=== PATIENT | male | born 1975 | race Caucasian/White ===

== ENCOUNTER 2016-07-04 16:20 | Emergency (ER) | payer MEDICAID ==
[2016-07-04 16:24] VITALS: BMI 34.3
--- NOTE | 2016-07-04 16:35 | DR.GENAD ---
HPI - PCP Primary Care Physician: NFD - Complaint/Symptoms Chief Complaint Doctors Comments: Patient admits to dyspnea for two to three weeks. He denies a history of cardiopulmonary disease. He chews Chief Complaint:: PT C/O PAIN RT RIB AND BACK PAIN WITH SOB. PT STATES HE HAS BEEN HAVING A HARD TIME BREATHING. - Source History Provided: Patient - Mode of Arrival Mode of Arrival: Ambulatory - Timing Onset of Chief Complaint: 07/02/16 PMH - PMH Past Medical History: No Past Surgical History: No - Family History History of Family Medical Conditions: No - Social History Does patient currently use any type of tobacco product: Yes Have you used tobacco products in the last 12 months: Yes Type of Tobacco Use: DIP Does any household member use tobacco: Yes Alcohol Use: Heavy Do you use any recreational Drugs:: No Lives With: Family Lives Where: Home - infectious screening In the last 2 months have you had wt loss of >10#?: NO Have you had fever, night sweats or hemotysis?: No Have you traveled outside the country in the last 6 months?: No Isolation: Standard ROS - Review of Systems Constitutional: No Symptoms Reported Eyes: No Symptoms Reported ENTM: No Symptoms Reported Respiratoy: No Symptoms Reported Cardiovascular: No Symptoms Reported Gastrointestinal/Abdominal: No Symptoms Reported Genitourinary: No Symptoms Reported Neurological: No Symptoms Reported Musculoskeletal: No Symptoms Reported Integumentary: No Symptoms Reported Hematologic/Lymphatic: No Symptoms Reported Endocrine: No Symptoms Reported Psychiatric: No Symptoms Reported All Other Systems: Reviewed and Negative PE - Vital Signs Vitals: Temperature 101.9 F Pulse Rate 114 Respiratory Rate 26 Blood Pressure 149/77 O2 Sat by Pulse Oximetry 94 - General Limitations: No Limitations General Appearance: Alert, In Distress - Head Head Exam: Normal Inspection, Atraumatic - Eyes Eye exam: Normal Appearance, PERRL, EOMI - ENT ENT Exam: Normal Exam, Normal Oropharynx External Ear Exam: Normal External Inspection TM/Canal Exam: Bilateral Normal Nose Exam: Normal Nose Exam Mouth Exam: Normal Inspection Throat Exam: Normal Inspection - Neck Neck Exam: Normal Inspection, Full ROM - Chest Chest Inspection: Normal Inspection - Respiratory Respiratory Exam: Normal Lung Sounds Bilat Respiratory Exam: Bilateral Decreased Breath Sounds (expiratory wheeze) - Cardiovascular Cardiovascular Exam: Regular Rate - Abdominal Exam Abdominal Exam: Normal Inspection Abdominal Tenderness: negative: RUQ, RLQ, LUQ, LLQ, Epigastrium, Suprapubic, Diffuse, Mild, Moderate, Severe, Other - Extremities Extremities Exam: Normal Inspection, Full ROM - Back Back Exam: Normal Inspection - Neurologic Neurological Exam: Alert, Oriented X3, CN II-XII Intact - Psychiatric Psychiatric Exam: Normal Affect - Skin Skin Exam: Warm, Dry, Intact Course - Treatment Treatment: Duo Nebs x3,ceftgriaxone - Reevaluation 1st: Improved ROR - Labs Reviewed Laboratory Results Reviewed?: Yes (cardiacs negative) Result Diagrams: 07/04/16 16:40 07/04/16 16:40 Laboratory: WBC 19.5 X10^3/uL (3.6-10.0) H 07/04/16 16:40 RBC 4.34 X10^6/uL (4.7-6.0) L 07/04/16 16:40 Hgb 13.9 g/dL (13.5-18.0) 07/04/16 16:40 Hct 40.3 % (42.0-54.0) L 07/04/16 16:40 MCV 92.9 fL (80.0-100.0) 07/04/16 16:40 MCH 32.0 pg (27.0-34.0) 07/04/16 16:40 MCHC 34.4 g/dL (33.0-35.0) 07/04/16 16:40 RDW 13.1 % (11.6-16.5) 07/04/16 16:40 Plt Count 245 X10^3/uL (150.0-450.0) 07/04/16 16:40 MPV 7.8 fL (7.4-11.0) 07/04/16 16:40 Neut % 82.3 % (42.0-75.0) H 07/04/16 16:40 Lymph % 10.5 % (21.0-51.0) L 07/04/16 16:40 [place] % 6.7 % (0.0-13.0) 07/04/16 16:40 Eos % 0.1 % (0.9-2.9) L 07/04/16 16:40 Baso % 0.4 % (0.2-1.0) 07/04/16 16:40 Neut # 16.0 x10^3/uL (2.2-4.8) H 07/04/16 16:40 Lymph # 2.0 X10^3/uL (1.3-2.9) 07/04/16 16:40 [place] # 1.3 x10^3/uL (0.3-0.8) H 07/04/16 16:40 Eos # 0.0 x10^3/uL (0.0-0.2) 07/04/16 16:40 Baso # 0.1 X10^3/uL (0.0-0.1) 07/04/16 16:40 Absolute Nucleated RBC 0.0 /100WBC 07/04/16 16:40 INR Target Range - 07/04/16 16:40 INR 1.14 (0.8-1.3) 07/04/16 16:40 PTT 31.5 SECONDS (22.9-36.5) 07/04/16 16:40 PTT Comment - 07/04/16 16:40 D-Dimer 145 ng/mL (0-400) 07/04/16 16:40 Sodium 136 mmol/L (136-145) 07/04/16 16:40 Corrected Sodium 136 mmol/L (136-145) 07/04/16 16:40 Potassium 3.5 mmol/L (3.5-5.1) 07/04/16 16:40 Chloride 98 mmol/L (98-107) 07/04/16 16:40 Carbon Dioxide 23.8 mmol/L (21-32) 07/04/16 16:40 BUN 12 mg/dL (7-18) 07/04/16 16:40 Creatinine 1.01 mg/dL (0.70-1.30) 07/04/16 16:40 Est GFR (MDRD) Af Amer > 60 (>60) 07/04/16 16:40 Est GFR (MDRD) Non-Af > 60 (>60) 07/04/16 16:40 Glucose 113 mg/dL (65-99) H 07/04/16 16:40 Calcium 8.8 mg/dL (8.5-10.1) 07/04/16 16:40 Corrected Calcium TNP 07/04/16 16:40 Phosphorus 3.2 mg/dL (2.6-4.7) 07/04/16 16:40 Magnesium 1.6 mg/dL (1.7-2.9) L 07/04/16 16:40 Total Bilirubin 0.90 mg/dL (0.2-1.0) 07/04/16 16:40 AST 18 Units/L (15-37) 07/04/16 16:40 ALT 33 Units/L (12-78) 07/04/16 16:40 Alkaline Phosphatase 64 Units/L (46-116) 07/04/16 16:40 Creatine Kinase 234 Units/L (39-308) 07/04/16 16:40 CK-MB (CK-2) < 1.0 ng/mL (0-4.0) 07/04/16 16:40 CK/CKMB % Calc 0.4 % (<4) 07/04/16 16:40 Troponin I < 0.02 ng/mL (0-1.5) 07/04/16 16:40 Total Protein 8.4 g/dL (6.4-8.2) H 07/04/16 16:40 Albumin 3.9 g/dL (3.4-5.0) 07/04/16 16:40 Globulin 4.5 g/dL (2.5-4.5) 07/04/16 16:40 Albumin/Globulin Ratio 0.9 Ratio (1.1-2.1) L 07/04/16 16:40 Influenza A (H1N1) PCR Not detected (NOT DETECT) 07/04/16 17:37 Influenza Type A (PCR) Negative (NEGATIVE) 07/04/16 17:37 Influenza Type B (PCR) Negative (NEGATIVE) 07/04/16 17:37 - XRAY XRAY Interpreted by: Radiologist (Chest: The cardiac silhouette is unremarkable. There is prominence of the central bronchial pulmonary markings in both lungs. There are possible infiltrates in the infrahilar regions bilaterally and suprahilar region on the right. There is no evidence of consolidation, significant effusion or pneumothorax. The bony thorax is unremarkable Impressions: Bronchitis vs reactive airway disease with superimposed and perihilar infiltrates.) - Diagnosis Discharge Problem: Reactive airway disease Qualifiers: Asthma severity: unspecified severity Asthma complication type: uncomplicated Qualified Code(s): J45.909 - Unspecified asthma, uncomplicated Pneumonia Qualifiers: Pneumonia type: due to unspecified organism Lung location: unspecified part of lung - Discharge Plan Condition: Stable - Follow ups/Referrals Follow ups/Referrals: NFD,None [Primary Care Provider] - 3 days - Instructions
[2016-07-04 16:53] LABS: BASOPHILS # (AUTO) 0.1 X10^3/uL (0.0-0.1); BASOPHILS % (AUTO) 0.4 % (0.2-1.0); EOSINOPHILS % (AUTO) 0.1 % (0.9-2.9); HEMATOCRIT 40.3 % (42.0-54.0); HEMOGLOBIN 13.9 g/dL (13.5-18.0); LYMPHOCYTES % (AUTO) 10.5 % (21.0-51.0); MEAN CORPUSCULAR HGB CONC 34.4 g/dL (33.0-35.0); MEAN CORPUSCULAR VOLUME 92.9 fL (80.0-100.0); MEAN PLATELET VOLUME 7.8 fL (7.4-11.0); MONOCYTES # (AUTO) 1.3 x10^3/uL (0.3-0.8); MONOCYTES % (AUTO) 6.7 % (0.0-13.0); NEUTROPHILS % (AUTO) 82.3 % (42.0-75.0); PLATELET COUNT 245 X10^3/uL (150.0-450.0); RED BLOOD COUNT 4.34 X10^6/uL (4.7-6.0); RED CELL DISTRIBUTION WIDTH 13.1 % (11.6-16.5); WHITE BLOOD COUNT 19.5 X10^3/uL (3.6-10.0)
--- NOTE | 2016-07-04 16:57 | RAD ---
Examination: Chest x-ray. Clinical History: Dyspnea. Technique: A single portable AP view of the chest was obtained. Comparison: None available. Findings: The lungs are hypoventilated, precluding evaluation of the heart size. The thoracic aorta is mildly tortuous. No pneumothorax or pleural effusion is noted. No pulmonary opacity is noted. No acute osseous abnormality is noted. Monitor leads are seen overlying the chest. Impression: 1. Hypoventilated lungs. Reported By:
[2016-07-04] MEDS ORDERED: ASPIRIN PO SCH (17:00)
[2016-07-04 17:16] LABS: BLOOD UREA NITROGEN 12 mg/dL (7-18); CALCIUM 8.8 mg/dL (8.5-10.1); CARBON DIOXIDE 23.8 mmol/L (21-32); CHLORIDE 98 mmol/L (98-107); COR NA(FOR HYPERGLY) 136 mmol/L (136-145); CREATININE 1.01 mg/dL (0.70-1.30); GLUCOSE 113 mg/dL (65-99); SODIUM 136 mmol/L (136-145); TROPONIN I < 0.02 ng/mL (0-1.5); eGFR BLACK RACES > 60 (>60); eGFR NON BLACK RACES > 60 (>60)
[2016-07-04 17:20] LABS: D DIMER 145 ng/mL (0-400)
[2016-07-04 17:31] LABS: ALANINE AMINOTRANSFERASE 33 Units/L (12-78); ALBUMIN 3.9 g/dL (3.4-5.0); ALKALINE PHOSPHATASE 64 Units/L (46-116); ASPARTATE AMINO TRANSFERASE 18 Units/L (15-37); CKMB % 0.4 % (<4); CREATINE KINASE 234 Units/L (39-308); CREATINE KINASE MB < 1.0 ng/mL (0-4.0); MAGNESIUM 1.6 mg/dL (1.7-2.9); PHOSPHORUS 3.2 mg/dL (2.6-4.7); TOTAL PROTEIN 8.4 g/dL (6.4-8.2)
[2016-07-04] MEDS ORDERED: ASPIRIN ONE (17:36)
[2016-07-04] MEDS ORDERED: DUONEB 0.5 MG/3 MG ONE ×2 (17:40→19:12)
[2016-07-04] MEDS ORDERED: DUONEB 0.5 MG/3 MG NEB ONE ×2 (17:49→19:01)
--- NOTE | 2016-07-04 18:02 | RAD ---
HISTORY: Dyspnea. Study: Chest two views Comparison: July 04, 2016. Findings: The trachea is midline. The cardiac silhouette is unremarkable. There is prominence of the central bronchial pulmonary markings in both lungs. There are possible infiltrates in the infrahilar regions bilaterally and suprahilar region on the right. There is no evidence of consolidation, significant effusion or pneumothorax. The bony thorax is unremarkable. IMPRESSION: 1. Bronchitis versus reactive airway disease, with superimposed and perihilar infiltrates. Reported By:
[2016-07-04] MEDS ORDERED: DECADRON JET NEB NEB ONE ×2 (19:01→19:11)
[2016-07-04] MEDS ORDERED: ROCEPHIN VIAL 1 GM 1 GM in NS 50 ML IV + SPIKE MINIBAG* 50 ML IV ONE (19:38)
[2016-07-04] MEDS ORDERED: ROCEPHIN VIAL 1 GM ONE (19:42)
[2016-07-04] MEDS ORDERED: NS 50 ML IV + SPIKE MINIBAG* 50 ML IV ONE (19:42)
[2016-07-04 22:55] VITALS: BP 138/65
== END 2016-07-04 20:10 | disposition home or self-care (01) ==
LOC: ER 16:29
DX: J18.9 Pneumonia, unspecified organism (principal); J45.909 Unspecified asthma, uncomplicated; R06.02 Shortness of breath
CPT/HCPCS: 36415; 71010; 71020; 80053; 82550; 82553; 83735; 84100; 84484; 85025; 85378; 85610; 85730; 87502; 87503; 93005; 93010; 94644; 96365; 96374; 99283; A4222; J0696; J7620

== ENCOUNTER 2020-12-13 13:20 | Inpatient (IN) ==
[2020-12-13 13:47] VITALS: BMI 48.6
[2020-12-13] MEDS ORDERED: REMDESIVIR 200 MG in NS 100 ML IV 140 ML IV ONE (14:22)
[2020-12-13] MEDS ORDERED: DECADRON INJ IVP ONE (14:22)
[2020-12-13] MEDS ORDERED: DECADRON INJ ONE (14:25)
--- NOTE | 2020-12-13 14:25 | DR.SOBA ---
HPI Time Seen Time Seen by Provider: 12/13/20 14:18 Primary Care Physician Primary Care Physician: NONE Complaints Chief Complaint:: COVID (+) 8 DAYS AGO, ONSET OF SOB THIS AM. PT.'S SISTER WAS ALSO (+) AND THE PATIENT BORROWED HIS SISTER'S OXYGEN TO GET TO THE HOSPITAL Self Treatment fo Chief Complaint: OTC ZINC & VITAMIN C Reviewed Nurses Notes Reviewed: Yes Source History Provided: Patient Mode of Arrival Mode of Arrival: Wheelchair Timing Onset of Chief Complaint: 12/13/20 PMH PMH Past Medical History: No Past Surgical History: No Family History History of Family Medical Conditions: Yes Family Medical History: Diabetes Mellitus and Hypertension Social History Does patient currently use any type of tobacco product: No Have you used tobacco products in the last 12 months: No Type of Tobacco Use: None Does any household member use tobacco: No Do you use any recreational Drugs:: No Lives With: Mom Lives Where: Home Infectious screening In the last 2 months have you had wt loss of >10#?: NO Have you had fever, night sweats or hemotysis?: No Have you traveled outside the country in the last 6 months?: No Isolation: Airborn/Negative Pressure ROS Review of Systems Constitutional: Malaise and Fatigue Eyes: No Symptoms Reported ENTM: No Symptoms Reported Respiratoy: See HPI, Non-Productive Cough and Short of Breath Cardiovascular: No Symptoms Reported Gastrointestinal/Abdominal: No Symptoms Reported Genitourinary: No Symptoms Reported Neurological: No Symptoms Reported Musculoskeletal: No Symptoms Reported Integumentary: No Symptoms Reported Hematologic/Lymphatic: No Symptoms Reported Endocrine: No Symptoms Reported Psychiatric: No Symptoms Reported All Other Systems: Reviewed and Negative PE Vital Signs Vitals: Temperature 97.6 F Pulse Rate 79 Respiratory Rate 27 Blood Pressure [Left Arm] 138/65 Blood Pressure 124/69 O2 Sat by Pulse Oximetry 92 General Limitations: No Limitations General Appearance: Alert and In No Apparent Distress Head Head Exam: Normal Inspection Eyes Eye exam: Normal Appearance ENT ENT Exam: Normal Exam Neck Neck Exam: Normal Inspection Chest Chest Inspection: Normal Inspection Respiratory Respiratory Exam: Normal Lung Sounds Bilat Respiratory Exam: Bilateral: Clear to Auscultation Cardiovascular Cardiovascular Exam: Regular Rate and Normal Rhythm Abdominal Exam Abdominal Exam: Normal Inspection, Normal Bowel Sounds and Soft Extremities Extremities Exam: Normal Inspection Back Back Exam: Normal Inspection Neurologic Neurological Exam: Alert and Oriented X3 Psychiatric Psychiatric Exam: Normal Affect and Normal Mood Skin Skin Exam: Warm, Dry, Intact and Normal Color MDM Differential Diagnosis Differential Diagnosis: Anxiety, Asthma, Bronchitis, Cardiogenic shock, CHF, COPD, Dysrhythmia, Hypertensive Emergency, Hyperventilation, Hyponatremia, Mycardial Infarction, Panic Attack, Pneumonia, Pneumothorax, PSVT, Pulmonary embolism, Respiratory Failure, Respiratory Insufficiency, Sinusitis, URI and Other Differential Diagnosis Comment:: covid COURSE Treatment Treatment: hypoxia, covid + 8 day [employer], no clear signs of resp distress or severe sepsis Reevaluation 1st: Improved (COVID hypoxia, will admit, see orders spoke with Morgan) Education/Counseling Education/Counseling: Patient, Family and Counseling Educated On: Treatment, Diagnosis and Prognosis ROR Labs Reviewed Laboratory Results Reviewed?: Yes Result Diagrams: 12/13/20 14:40 12/13/20 14:40 Laboratory: WBC 6.4 X10^3/uL (3.6-10.0) 12/13/20 14:40 RBC 4.38 X10^6/uL (4.7-6.0) L 12/13/20 14:40 Hgb 14.1 g/dL (13.5-18.0) 12/13/20 14:40 Hct 40.4 % (42.0-54.0) L 12/13/20 14:40 MCV 92.2 fL (80.0-100.0) 12/13/20 14:40 MCH 32.1 pg (27.0-34.0) 12/13/20 14:40 MCHC 34.8 g/dL (33.0-35.0) 12/13/20 14:40 RDW 12.8 % (11.6-16.5) 12/13/20 14:40 Plt Count 186 X10^3/uL (150.0-450.0) 12/13/20 14:40 MPV 7.5 fL (7.4-11.0) 12/13/20 14:40 Neut % (Auto) 72.1 % (42.0-75.0) 12/13/20 14:40 Lymph % (Auto) 21.4 % (21.0-51.0) 12/13/20 14:40 [place] % (Auto) 6.2 % (0.0-13.0) 12/13/20 14:40 Eos % (Auto) 0.1 % (0.9-2.9) L 12/13/20 14:40 Baso % (Auto) 0.2 % (0.2-1.0) 12/13/20 14:40 Neut # (Auto) 4.6 x10^3/uL (2.2-4.8) 12/13/20 14:40 Lymph # (Auto) 1.4 X10^3/uL (1.3-2.9) 12/13/20 14:40 [place] # (Auto) 0.4 x10^3/uL (0.3-0.8) 12/13/20 14:40 Eos # (Auto) 0.0 x10^3/uL (0.0-0.2) 12/13/20 14:40 Baso # (Auto) 0.0 X10^3/uL (0.0-0.1) 12/13/20 14:40 Absolute Nucleated RBC 0.1 /100WBC 12/13/20 14:40 D-Dimer 0.40 ug/ml (0.0-0.57) 12/13/20 14:40 Sample Site Lr 12/13/20 14:50 ABG pH 7.450 (7.35-7.45) 12/13/20 14:50 ABG pCO2 45.0 mmHg (35.0-45.0) 12/13/20 14:50 ABG pO2 53.0 mmHg (80.0-100.0) L 12/13/20 14:50 ABG HCO3 31.3 mmol/L (22-26) H* 12/13/20 14:50 ABG O2 Saturation 89.0 % (90-100) L 12/13/20 14:50 ABG Base Excess 6.4 mmol/L (-2.0-2.0) H 12/13/20 14:50 Harry Test Pos 12/13/20 14:50 A-a Gradient 147.0 mmHg 12/13/20 14:50 FiO2 36.0 12/13/20 14:50 Blood Gas Comments Pt [email or web address] 12/13/20 14:50 Sodium 139 mmol/L (136-145) 12/13/20 14:40 Corrected Sodium 140 mmol/L (136-145) 12/13/20 14:40 Potassium 3.9 mmol/L (3.5-5.1) 12/13/20 14:40 Chloride 99 mmol/L (98-107) 12/13/20 14:40 Carbon Dioxide 32.7 mmol/L (21-32) H 12/13/20 14:40 BUN 8 mg/dL (7-18) 12/13/20 14:40 Creatinine 0.87 mg/dL (0.70-1.30) 12/13/20 14:40 Est GFR (MDRD) Af Amer > 60 (>60) 12/13/20 14:40 Est GFR (MDRD) Non-Af > 60 (>60) 12/13/20 14:40 Glucose 130 mg/dL (65-99) H 12/13/20 14:40 Calcium 8.4 mg/dL (8.5-10.1) L 12/13/20 14:40 Corrected Calcium 9.0 mg/dL (8.5-10.1) 12/13/20 14:40 Ferritin 1408 ng/mL (26-388) H 12/13/20 14:40 Total Bilirubin 0.50 mg/dL (0.2-1.0) 12/13/20 14:40 AST 37 Units/L (15-37) 12/13/20 14:40 ALT 46 Units/L (12-78) 12/13/20 14:40 Alkaline Phosphatase 60 Units/L (46-116) 12/13/20 14:40 Creatine Kinase 172 Units/L (39-308) 12/13/20 14:40 CK-MB (CK-2) < 1.0 ng/mL (0-4.0) 12/13/20 14:40 CK/CKMB % Calc 0.6 % (<4) 12/13/20 14:40 Troponin I < 0.02 ng/mL (0-1.5) 12/13/20 14:40 C-Reactive Protein 75.40 mg/L (0-3.0) H 12/13/20 14:40 B-Natriuretic Peptide 19.1 pg/mL (0-79) 12/13/20 14:40 Total Protein 8.0 g/dL (6.4-8.2) 12/13/20 14:40 Albumin 3.3 g/dL (3.4-5.0) L 12/13/20 14:40 Globulin 4.7 g/dL (2.5-4.5) H 12/13/20 14:40 Albumin/Globulin Ratio 0.7 Ratio (1.1-2.1) L 12/13/20 14:40 SARS-CoV-2 (PCR) Positive (NEGATIVE) A 12/13/20 15:31 Influenza Type A (PCR) Negative (NEGATIVE) 12/13/20 15:31 Influenza Type B (PCR) Negative (NEGATIVE) 12/13/20 15:31 RSV (PCR) Negative (NEGATIVE) 12/13/20 15:31 XRAY XRAY Interpreted by: Radiologist X-ray Results: Moderate airspace and interstitial opacities consistent with COVID 19. Cardiomegaly. Widened mediastinum may be due to technique but underlying mediastinal pathology occluding aortic pathology is not excluded. Consider PA view or CT chest for further evaluation. probable due to body habitus and technique EKG Rate: 87 [place]: Normal Block: None Hypertrophy: None ST: Nonsp Opioid Opioid Risk Tool Total: 0 Total Score Risk Category: Low Risk Copyright: [facility] predicting aberrant behaviors Diagnosis Discharge Problem: COVID-19, Hypoxia Pneumonia Qualifiers: Pneumonia type: due to unspecified organism Laterality: unspecified laterality Lung location: unspecified part of lung Qualified Code(s): J18.9 - Pneumonia, unspecified organism Dyspnea Qualifiers: Dyspnea type: unspecified Qualified Code(s): R06.00 - Dyspnea, unspecified
--- NOTE | 2020-12-13 14:36 | RAD ---
HISTORYCOVID (+) 8 DAYS AGO, ONSET OF SOB THIS AM. PT.'S SISTER WAS ALSO (+) AND THE PATIENT BORROWED HIS SISTER'S OXYGEN TO GET TO THE [facility], [id number], report only.TECHNIQUEAP view of the chestFINDINGSThe cardiac silhouette is stably enlarged. Mediastinal contours appear stable. Widened mediastinum may be due to technique. Moderate bilateral airspace and interstitial opacities. No definite pleural effusion or pneumothorax.IMPRESSIONModerate airspace and interstitial opacities consistent with COVID 19. Cardiomegaly. Widened mediastinum may be due to technique but underlying mediastinal pathology occluding aortic pathology is not excluded. Consider PA view or CT chest for further evaluation.Electronically signed by: Ever Olivas (Dec 13, 2020 14:34:58)
[2020-12-13 14:54] LABS: ABG BASE EXCESS 6.4 mmol/L (-2.0-2.0)
[2020-12-13 14:54] LABS: BASOPHILS % (AUTO) 0.2 % (0.2-1.0); EOSINOPHILS % (AUTO) 0.1 % (0.9-2.9); HEMATOCRIT 40.4 % (42.0-54.0); HEMOGLOBIN 14.1 g/dL (13.5-18.0); LYMPHOCYTES # (AUTO) 1.4 X10^3/uL (1.3-2.9); LYMPHOCYTES % (AUTO) 21.4 % (21.0-51.0); MEAN CORPUSCULAR HEMOGLOBIN 32.1 pg (27.0-34.0); MEAN CORPUSCULAR HGB CONC 34.8 g/dL (33.0-35.0); MEAN CORPUSCULAR VOLUME 92.2 fL (80.0-100.0); MEAN PLATELET VOLUME 7.5 fL (7.4-11.0); MONOCYTES # (AUTO) 0.4 x10^3/uL (0.3-0.8); MONOCYTES % (AUTO) 6.2 % (0.0-13.0); NEUTROPHILS # (AUTO) 4.6 x10^3/uL (2.2-4.8); NEUTROPHILS % (AUTO) 72.1 % (42.0-75.0); PLATELET COUNT 186 X10^3/uL (150.0-450.0); RED BLOOD COUNT 4.38 X10^6/uL (4.7-6.0); RED CELL DISTRIBUTION WIDTH 12.8 % (11.6-16.5); WHITE BLOOD COUNT 6.4 X10^3/uL (3.6-10.0)
[2020-12-13 14:55] LABS: ABG ALLEN TEST POS; ABG HCO3 31.3 mmol/L (22-26)
[2020-12-13] MEDS ORDERED: REMDESIVIR IV ONE (14:56)
[2020-12-13] MEDS ORDERED: NS 250 ML IV 250 ML IV ONE (14:57)
[2020-12-13 15:43] LABS: ALANINE AMINOTRANSFERASE 46 Units/L (12-78); ALBUMIN 3.3 g/dL (3.4-5.0); ALKALINE PHOSPHATASE 60 Units/L (46-116); ASPARTATE AMINO TRANSFERASE 37 Units/L (15-37); BLOOD UREA NITROGEN 8 mg/dL (7-18); CALCIUM 8.4 mg/dL (8.5-10.1); CARBON DIOXIDE 32.7 mmol/L (21-32); CHLORIDE 99 mmol/L (98-107); CKMB % 0.6 % (<4); COR NA(FOR HYPERGLY) 140 mmol/L (136-145); CREATINE KINASE 172 Units/L (39-308); CREATINE KINASE MB < 1.0 ng/mL (0-4.0); CREATININE 0.87 mg/dL (0.70-1.30); SODIUM 139 mmol/L (136-145); TROPONIN I < 0.02 ng/mL (0-1.5); eGFR NON BLACK RACES > 60 (>60)
[2020-12-13] MEDS ORDERED: MAGIC MOUTHWASH MT PRN (16:51)
[2020-12-13] MEDS ORDERED: TUSSIONEX PENNKINETIC SUSP PO PRN (16:51)
[2020-12-13] MEDS ORDERED: ACTEMRA IV ONE (16:51)
[2020-12-13] MEDS ORDERED: PHARMACY CONSULT - IVERMECTIN XX SCH (17:00)
[2020-12-13] MEDS ORDERED: ACCUNEB 1.25 MG NEBULE NEB SCH (17:00)
[2020-12-13] MEDS: MUCOMYST 20% 200 MG/ML NEB SCH ×2 (17:02→20:25)
[2020-12-13] MEDS: XOPENEX 1.25 MG/3 ML NEBULE NEB SCH ×2 (17:02→20:25)
[2020-12-13] MEDS ORDERED: NS 1/2 1000 ML IV 1,000 ML IV ONE (17:54)
[2020-12-13] MEDS: NS 1/2 1000 ML IV 1,000 ML IV SCH ×2 (17:57→17:58)
[2020-12-13] MEDS ORDERED: PULMICORT NEB TX 0.5 MG NEB ONE (19:10)
[2020-12-13] MEDS ORDERED: LIPITOR TAB 80 MG ONE (19:58)
[2020-12-13] MEDS ORDERED: THIAMINE HCL INJ ONE (19:58)
[2020-12-13] MEDS ORDERED: LOVENOX INJ 30 MG SYR SC ONE (19:58)
[2020-12-13] MEDS ORDERED: SOLU-Medrol 125 MG VIAL ONE (19:58)
[2020-12-13] MEDS ORDERED: TESSALON PERLES PO ONE (19:58)
[2020-12-13] MEDS ORDERED: MELATONIN ONE (19:58)
[2020-12-13] MEDS ORDERED: FORTAZ or TAZICEF VIAL INJ ONE (19:59)
[2020-12-13] MEDS ORDERED: NS 100 ML IV + SPIKE MINIBAG* 100 ML IV ONE (19:59)
[2020-12-13] MEDS ORDERED: MILK OF MAGNESIA ONE (19:59)
[2020-12-13] MEDS ORDERED: NS 50 ML IV 50 ML IV ONE (19:59)
[2020-12-13] MEDS: PULMICORT NEB TX 0.5 MG NEB SCH (20:25)
[2020-12-13] MEDS: TESSALON PERLES PO SCH (21:19)
[2020-12-13] MEDS: FORTAZ or TAZICEF VIAL INJ IV SCH (21:19)
[2020-12-13] MEDS: ASCORBIC ACID INJ MULTI-DOSE VIAL 1,500 MG in NS 50 ML IV 50 ML IV SCH (21:19)
[2020-12-13] MEDS: THEO-DUR TAB 300 MG 12-HR PO SCH (21:20)
[2020-12-13] MEDS: MELATONIN PO SCH (21:20)
[2020-12-13] MEDS: THIAMINE HCL INJ IVP SCH (21:20)
[2020-12-13] MEDS: MILK OF MAGNESIA PO SCH ×2 (21:20→22:00)
[2020-12-13] MEDS: LIPITOR TAB 80 MG PO SCH (21:21)
[2020-12-13] MEDS: SOLU-Medrol 125 MG VIAL IVP SCH (21:21)
[2020-12-13] MEDS: SNACK - Diabetic Appropriate PO SCH (21:22)
[2020-12-13] MEDS: LOVENOX INJ 30 MG SYR SC SCH (21:23)
[2020-12-13] MEDS: SINGULAIR TAB 10 MG PO SCH (21:47)
[2020-12-14] MEDS ORDERED: NS 50 ML IV 50 ML IV ONE ×2 (02:27→12:15)
[2020-12-14] MEDS ORDERED: SOLU-Medrol 125 MG VIAL ONE ×2 (02:28→12:12)
[2020-12-14] MEDS: ASCORBIC ACID INJ MULTI-DOSE VIAL 1,500 MG in NS 50 ML IV 50 ML IV SCH ×3 (02:44→21:05)
[2020-12-14] MEDS: SOLU-Medrol 125 MG VIAL IVP SCH ×4 (02:45→21:03)
[2020-12-14] MEDS ORDERED: TESSALON PERLES PO ONE (06:02)
[2020-12-14] MEDS ORDERED: FORTAZ or TAZICEF VIAL INJ ONE (06:02)
[2020-12-14] MEDS: FORTAZ or TAZICEF VIAL INJ IV SCH ×3 (06:09→21:50)
[2020-12-14] MEDS: TESSALON PERLES PO SCH ×3 (06:11→21:08)
[2020-12-14 06:35] LABS: BASOPHILS % (AUTO) 0.1 % (0.2-1.0); HEMATOCRIT 39.6 % (42.0-54.0); HEMOGLOBIN 13.8 g/dL (13.5-18.0); LYMPHOCYTES # (AUTO) 0.7 X10^3/uL (1.3-2.9); LYMPHOCYTES % (AUTO) 16.1 % (21.0-51.0); MEAN CORPUSCULAR HEMOGLOBIN 32.1 pg (27.0-34.0); MEAN CORPUSCULAR HGB CONC 34.8 g/dL (33.0-35.0); MEAN CORPUSCULAR VOLUME 92.1 fL (80.0-100.0); MEAN PLATELET VOLUME 8.1 fL (7.4-11.0); MONOCYTES # (AUTO) 0.1 x10^3/uL (0.3-0.8); MONOCYTES % (AUTO) 2.8 % (0.0-13.0); NEUTROPHILS # (AUTO) 3.7 x10^3/uL (2.2-4.8); PLATELET COUNT 210 X10^3/uL (150.0-450.0); RED CELL DISTRIBUTION WIDTH 12.8 % (11.6-16.5); WHITE BLOOD COUNT 4.6 X10^3/uL (3.6-10.0)
[2020-12-14 07:42] LABS: ALANINE AMINOTRANSFERASE 46 Units/L (12-78); ALKALINE PHOSPHATASE 57 Units/L (46-116); ASPARTATE AMINO TRANSFERASE 36 Units/L (15-37); BLOOD UREA NITROGEN 10 mg/dL (7-18); CALCIUM 8.1 mg/dL (8.5-10.1); CARBON DIOXIDE 28.4 mmol/L (21-32); CHLORIDE 100 mmol/L (98-107); COR CA(FOR HYPOALB) 8.9 mg/dL (8.5-10.1); COR NA(FOR HYPERGLY) 141 mmol/L (136-145); CREATININE 0.86 mg/dL (0.70-1.30); SODIUM 138 mmol/L (136-145); TOTAL PROTEIN 7.7 g/dL (6.4-8.2); eGFR NON BLACK RACES > 60 (>60)
--- NOTE | 2020-12-14 07:58 | CT ---
HISTORYCOVID-19, widened upper mediastinumSTUDYCTA chest with contrast for pulmonary embolusTechnique: Axial post-contrast images with coronal, sagittal, and 3 dimensional maximum intensity projection images obtained and evaluated. Dose reduction procedures were used with mA/kv adjusted for body size.COMPARISONChest x-ray 12/13/2020FINDINGSThere is no evidence for acute pulmonary thromboembolic disease in the main pulmonary artery, right and left main pulmonary artery, lobar branches and proximal most segmental branches. Evaluation peripherally is not possible due to suboptimal bolus timing. 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 No mediastinal mass abnormal mediastinal or abnormal hilar adenopathy is identified. No significant aortic abnormality is identified. No pleural effusions are identified. No chest wall or axillary abnormality is identified. Those portions of the upper abdominal organs visualized were within normal limits to the limitations of early arterial injection timing. Examination of the lung deal demonstrated bilateral predominantly peripheral ground-glass infiltrates demonstrating some subpleural sparing. Findings are consistent with bilateral multifocal pneumonitis/pneumonia which could be bacterial, viral, or atypical viral in origin. COVID can have this appearance. No definite nodules, masses, areas of consolidation, peribronchial thickening, or bronchiectasis identified.IMPRESSIONNo evidence for acute pulmonary thromboembolic disease in the main pulmonary artery, right and left main pulmonary arteries, lobar branches and proximal most segmental branches. Evaluation more peripherally is not possible due to suboptimal bolus timingMediastinal widening is due to benign mediastinal lipomatosisScattered bilateral predominantly peripheral ground-glass infiltrates consistent with but not diagnostic of COVID lung involvement.Electronically signed by: MARISOL LEE (Dec 14, 2020 07:55:57)
--- NOTE | 2020-12-14 08:21 | RAD ---
HISTORYCOVID Relevant Clinical InformationSTUDYCHEST, 1 [id number]/02/2021.FINDINGSThe trachea is midline mild cardiomegaly. Large body habitus. There are unchanged small peripheral ground-glass radiopacitiesThere is also a left perihilar ground-glass radiopacity. No evidence of pneumothorax. No subcutaneous emphysema or pneumomediastinumIMPRESSIONPersistent small ground-glass radiopacity in the periphery of the lungs, mild worsening left perihilar ground-glass radiopacity.Electronically signed by: Sonya Fuller (Dec 14, 2020 08:19:33)
[2020-12-14] MEDS: XOPENEX 1.25 MG/3 ML NEBULE NEB SCH ×4 (09:04→21:35)
[2020-12-14] MEDS: PULMICORT NEB TX 0.5 MG NEB SCH ×2 (09:04→21:35)
[2020-12-14] MEDS: MUCOMYST 20% 200 MG/ML NEB SCH ×4 (09:04→21:35)
--- NOTE | 2020-12-14 11:00 | DR.H&P ---
H&P History & Physical for Day of: H&P Date: 12/14/20 Chief Complaint Chief Complaint: Shortness of breath Weakness, Fatigue Allergies Allergies Allergy/AdvReac Type Severity Reaction Status Date / Time No Known Drug Allergies Allergy Verified 12/13/20 15:31 History of Present Illness History of Present Illness: Pt is a 45 year old male no past medical history presenting with progressively worsening shortness of breath, weakness, fatigue for the past 3-4 days. He reports testing positive for COVID-19 recently. He has been using his mother's oxygen intermittently at home to get by until shortness of breath became "too much". In the ED he was found to be hypoxic. He is currently utilizing 5L nasal cannula supplemental oxygen. Labs/imaging: Wbc 4.6, Hgb 13.8, Plt 210, Na 139, K 3.9, Creatinine 0.87, Glucose 130, CRP 75, D-dimer 0.36, ABG: pH 7.45, pCO2 45, pO2 53, HCO3 31, O2sat 89% on FiO2 36%, COVID-19 positive, CXR: Persistent small ground-glass radiopacity in the periphery of the lungs, mild worsening left perihilar ground-glass radiopacity. Concern for widened mediastinum on report. Will start patient on pneumonia protocol treatments that includes: IVF NS@75ml/h, Remdesivir, Solumedrol 125mg q6h, scheduled Bronchodilators, Antibiotics: Fortaz, Levaquin, Diflucan, Ivermectin, immune supporting supplements, supplemental O2, I/S, Respiratory therapy consult, Pneumonia protocol. Will get CTA of chest to evaluate widened mediastinum. Wean/titrate supplemental oxygen as tolerated. Continue to closely monitor and follow up labs/imaging. Time spent on clinical assessment, reviewing labs and imaging, decision making, and documentation greater than 45 minutes. Past Medical History Past Medical History: Family History Family Medical History: Diabetes Mellitus and Hypertension Social History Does patient currently use any type of tobacco product: No Have you used tobacco products in the last 12 months: No Type of Tobacco Use: None Does any household member use tobacco: No Medications Home Medications: No Known Drug Allergies Allergy (Verified 12/13/20 15:31) Labs Result Diagrams: 12/14/20 05:18 12/14/20 05:18 Labs: Laboratory WBC 4.6 X10^3/uL (3.6-10.0) 12/14/20 05:18 RBC 4.30 X10^6/uL (4.7-6.0) L 12/14/20 05:18 Hgb 13.8 g/dL (13.5-18.0) 12/14/20 05:18 Hct 39.6 % (42.0-54.0) L 12/14/20 05:18 MCV 92.1 fL (80.0-100.0) 12/14/20 05:18 MCH 32.1 pg (27.0-34.0) 12/14/20 05:18 MCHC 34.8 g/dL (33.0-35.0) 12/14/20 05:18 RDW 12.8 % (11.6-16.5) 12/14/20 05:18 Plt Count 210 X10^3/uL (150.0-450.0) 12/14/20 05:18 MPV 8.1 fL (7.4-11.0) 12/14/20 05:18 Neut % (Auto) 81.0 % (42.0-75.0) H 12/14/20 05:18 Lymph % (Auto) 16.1 % (21.0-51.0) L 12/14/20 05:18 [place] % (Auto) 2.8 % (0.0-13.0) 12/14/20 05:18 Eos % (Auto) 0.0 % (0.9-2.9) L 12/14/20 05:18 Baso % (Auto) 0.1 % (0.2-1.0) L 12/14/20 05:18 Neut # (Auto) 3.7 x10^3/uL (2.2-4.8) 12/14/20 05:18 Lymph # (Auto) 0.7 X10^3/uL (1.3-2.9) L 12/14/20 05:18 [place] # (Auto) 0.1 x10^3/uL (0.3-0.8) L 12/14/20 05:18 Eos # (Auto) 0.0 x10^3/uL (0.0-0.2) 12/14/20 05:18 Baso # (Auto) 0.0 X10^3/uL (0.0-0.1) 12/14/20 05:18 Absolute Nucleated RBC 0.1 /100WBC 12/14/20 05:18 D-Dimer 0.36 ug/ml (0.0-0.57) 12/13/20 17:07 Sample Site Lr 12/13/20 14:50 ABG pH 7.450 (7.35-7.45) 12/13/20 14:50 ABG pCO2 45.0 mmHg (35.0-45.0) 12/13/20 14:50 ABG pO2 53.0 mmHg (80.0-100.0) L 12/13/20 14:50 ABG HCO3 31.3 mmol/L (22-26) H* 12/13/20 14:50 ABG O2 Saturation 89.0 % (90-100) L 12/13/20 14:50 ABG Base Excess 6.4 mmol/L (-2.0-2.0) H 12/13/20 14:50 Harry Test Pos 12/13/20 14:50 A-a Gradient 147.0 mmHg 12/13/20 14:50 FiO2 36.0 12/13/20 14:50 Blood Gas Comments Pt [employer] 12/13/20 14:50 Sodium 138 mmol/L (136-145) 12/14/20 05:18 Corrected Sodium 141 mmol/L (136-145) 12/14/20 05:18 Potassium 3.8 mmol/L (3.5-5.1) 12/14/20 05:18 Chloride 100 mmol/L (98-107) 12/14/20 05:18 Carbon Dioxide 28.4 mmol/L (21-32) 12/14/20 05:18 BUN 10 mg/dL (7-18) 12/14/20 05:18 Creatinine 0.86 mg/dL (0.70-1.30) 12/14/20 05:18 Est GFR (MDRD) Af Amer > 60 (>60) 12/14/20 05:18 Est GFR (MDRD) Non-Af > 60 (>60) 12/14/20 05:18 Glucose 234 mg/dL (65-99) H 12/14/20 05:18 Calcium 8.1 mg/dL (8.5-10.1) L 12/14/20 05:18 Corrected Calcium 8.9 mg/dL (8.5-10.1) 12/14/20 05:18 Ferritin 1408 ng/mL (26-388) H 12/13/20 14:40 Total Bilirubin 0.60 mg/dL (0.2-1.0) 12/14/20 05:18 AST 36 Units/L (15-37) 12/14/20 05:18 ALT 46 Units/L (12-78) 12/14/20 05:18 Alkaline Phosphatase 57 Units/L (46-116) 12/14/20 05:18 Creatine Kinase 172 Units/L (39-308) 12/13/20 14:40 CK-MB (CK-2) < 1.0 ng/mL (0-4.0) 12/13/20 14:40 CK/CKMB % Calc 0.6 % (<4) 12/13/20 14:40 Troponin I < 0.02 ng/mL (0-1.5) 12/13/20 14:40 C-Reactive Protein 75.40 mg/L (0-3.0) H 12/13/20 14:40 B-Natriuretic Peptide 19.1 pg/mL (0-79) 12/13/20 14:40 Total Protein 7.7 g/dL (6.4-8.2) 12/14/20 05:18 Albumin 3.0 g/dL (3.4-5.0) L 12/14/20 05:18 Globulin 4.7 g/dL (2.5-4.5) H 12/14/20 05:18 Albumin/Globulin Ratio 0.6 Ratio (1.1-2.1) L 12/14/20 05:18 SARS-CoV-2 (PCR) Positive (NEGATIVE) A 12/13/20 15:31 Influenza Type A (PCR) Negative (NEGATIVE) 12/13/20 15:31 Influenza Type B (PCR) Negative (NEGATIVE) 12/13/20 15:31 RSV (PCR) Negative (NEGATIVE) 12/13/20 15:31 Review of Systems Constitutional: Chills and Weakness Eyes: No Symptoms Reported ENT: No Symptoms Reported Respiratory: Cough and Shortness of Breath Cardiovascular: No Symptoms Reported Gastrointestinal: No Symptoms Reported Genitourinary: No Symptoms Reported Musculoskeletal: No Symptoms Reported Skin: No Symptoms Reported Neurological: No Symptoms Reported Physical Exam Vital Signs: Temperature 97.6 F Pulse Rate [Left Radial] 75 Pulse Rate 85 Respiratory Rate 24 Blood Pressure [Left Arm] 120/76 Blood Pressure 124/69 O2 Sat by Pulse Oximetry 90 Oriented: Normal Eyes: Normal Ear: Normal Nose: Normal Throat: Normal Respiratory: Diminished Throughout, Rhonchi Throughout and Rales Throughout Cardiovascular: Normal : Normal Auscultation: Bowel Sounds: Normal Palpation: Normal Tenderness: Normal Skin: Normal Musculoskeletal: Normal Psychiatric: Normal Mood Description: Calm and Appropriate Affect: Normal Speech Pattern: Clear and Appropriate Assessment/Plan (1) Pneumonia due to COVID-19 virus: Status: Acute Plan: -Pneumonia protocol Review H&P Reviewed: Yes Patient was examined?: Yes
[2020-12-14] MEDS ORDERED: HumuLIN R SC PRN (11:54)
[2020-12-14] MEDS ORDERED: DIFLUCAN ONE (12:12)
[2020-12-14] MEDS ORDERED: ZyrTEC TAB 10 MG ONE (12:12)
[2020-12-14] MEDS ORDERED: ZINC SULFATE ONE (12:12)
[2020-12-14] MEDS ORDERED: VITAMIN D3 125 mcg (5,000 UNITS) ONE (12:12)
[2020-12-14] MEDS ORDERED: LOVENOX INJ 30 MG SYR SC ONE (12:13)
[2020-12-14] MEDS ORDERED: MILK OF MAGNESIA ONE (12:13)
[2020-12-14] MEDS ORDERED: REMDESIVIR IV ONE (12:13)
[2020-12-14] MEDS ORDERED: PROTONIX INJ 40 MG VIAL ONE (12:13)
[2020-12-14] MEDS ORDERED: PEPCID 20 MG IV PREMIX* 20 MG/50 ML BAG IV ONE (12:14)
[2020-12-14] MEDS ORDERED: LEVAQUIN PREMIX IV 500 MG 500 MG/100 ML BAG IV ONE (12:14)
[2020-12-14] MEDS ORDERED: ASCORBIC ACID INJ MULTI-DOSE VIAL IV ONE (12:17)
[2020-12-14] MEDS ORDERED: NS 250 ML IV 250 ML IV ONE (12:20)
[2020-12-14] MEDS: NS 1/2 1000 ML IV 1,000 ML IV SCH (13:01)
[2020-12-14] MEDS: DIFLUCAN PO SCH (13:02)
[2020-12-14] MEDS: LOVENOX INJ 30 MG SYR SC SCH ×2 (13:03→21:07)
[2020-12-14] MEDS: IVERMECTIN PO SCH (13:03)
[2020-12-14] MEDS: MILK OF MAGNESIA PO SCH ×2 (13:12→22:29)
[2020-12-14] MEDS: PROTONIX INJ 40 MG VIAL IVP SCH (13:12)
[2020-12-14] MEDS: ZyrTEC TAB 10 MG PO SCH (13:13)
[2020-12-14] MEDS: REMDESIVIR 100 MG in NS 250 ML IV 250 ML IV SCH (13:13)
[2020-12-14] MEDS: THEO-DUR TAB 300 MG 12-HR PO SCH ×2 (13:14→21:08)
[2020-12-14] MEDS: THIAMINE HCL INJ IVP SCH ×2 (13:14→21:02)
[2020-12-14] MEDS: VITAMIN D3 125 mcg (5,000 UNITS) PO SCH (13:15)
[2020-12-14] MEDS: ZINC SULFATE PO SCH (13:16)
[2020-12-14] MEDS: PEPCID 20 MG IV PREMIX* 20 MG/50 ML BAG IV SCH (14:16)
[2020-12-14] MEDS: LEVAQUIN PREMIX IV 500 MG 500 MG/100 ML BAG IV SCH (15:00)
[2020-12-14] MEDS: HumuLIN R SUBCUT PRN ×2 (18:16→21:06)
[2020-12-14] MEDS: SNACK - Diabetic Appropriate PO SCH (20:00)
[2020-12-14] MEDS ORDERED: NS 1/2 1000 ML IV 1,000 ML IV ONE (20:10)
[2020-12-14] MEDS: SINGULAIR TAB 10 MG PO SCH (21:08)
[2020-12-14] MEDS: LIPITOR TAB 80 MG PO SCH (21:08)
[2020-12-14] MEDS: MELATONIN PO SCH (21:08)
[2020-12-14] MEDS: NS 100 ML IV + SPIKE MINIBAG* 100 ML IV PRN (21:50)
[2020-12-15] MEDS: NS 1/2 1000 ML IV 1,000 ML IV SCH ×5 (02:05→22:18)
[2020-12-15] MEDS: SOLU-Medrol 125 MG VIAL IVP SCH ×4 (02:05→21:00)
[2020-12-15] MEDS: ASCORBIC ACID INJ MULTI-DOSE VIAL 1,500 MG in NS 50 ML IV 50 ML IV SCH ×4 (02:05→21:00)
[2020-12-15] MEDS: FORTAZ or TAZICEF VIAL INJ IV SCH ×3 (05:19→23:00)
[2020-12-15] MEDS: TESSALON PERLES PO SCH ×3 (05:19→21:00)
[2020-12-15] MEDS: NS 100 ML IV + SPIKE MINIBAG* 100 ML IV PRN ×2 (05:19→23:00)
[2020-12-15] MEDS: HumuLIN R SUBCUT PRN ×2 (05:29→21:00)
[2020-12-15] MEDS: MUCOMYST 20% 200 MG/ML NEB SCH ×4 (09:40→21:57)
[2020-12-15] MEDS: PULMICORT NEB TX 0.5 MG NEB SCH ×2 (09:40→21:56)
[2020-12-15] MEDS: XOPENEX 1.25 MG/3 ML NEBULE NEB SCH ×4 (09:40→21:57)
[2020-12-15] MEDS: THIAMINE HCL INJ IVP SCH ×2 (10:00→21:00)
[2020-12-15] MEDS: DIFLUCAN PO SCH (10:00)
[2020-12-15] MEDS: VITAMIN D3 125 mcg (5,000 UNITS) PO SCH (10:00)
[2020-12-15] MEDS: PROTONIX INJ 40 MG VIAL IVP SCH (10:00)
[2020-12-15] MEDS: LOVENOX INJ 30 MG SYR SC SCH ×2 (10:00→21:00)
[2020-12-15] MEDS: THEO-DUR TAB 300 MG 12-HR PO SCH ×2 (10:00→21:00)
[2020-12-15] MEDS: ZINC SULFATE PO SCH (10:00)
[2020-12-15] MEDS: ZyrTEC TAB 10 MG PO SCH (10:00)
[2020-12-15 11:39] LABS: BASOPHILS % (AUTO) 0 % (0.2-1.0); HEMATOCRIT 39.8 % (42.0-54.0); HEMOGLOBIN 13.6 g/dL (13.5-18.0); LYMPHOCYTES # (AUTO) 0.5 X10^3/uL (1.3-2.9); LYMPHOCYTES % (AUTO) 6.2 % (21.0-51.0); MEAN CORPUSCULAR HEMOGLOBIN 31.5 pg (27.0-34.0); MEAN CORPUSCULAR HGB CONC 34.1 g/dL (33.0-35.0); MEAN CORPUSCULAR VOLUME 92.4 fL (80.0-100.0); MEAN PLATELET VOLUME 7.6 fL (7.4-11.0); MONOCYTES # (AUTO) 0.5 x10^3/uL (0.3-0.8); MONOCYTES % (AUTO) 6.1 % (0.0-13.0); NEUTROPHILS # (AUTO) 6.9 x10^3/uL (2.2-4.8); NEUTROPHILS % (AUTO) 87.7 % (42.0-75.0); PLATELET COUNT 243 X10^3/uL (150.0-450.0); RED BLOOD COUNT 4.31 X10^6/uL (4.7-6.0); RED CELL DISTRIBUTION WIDTH 12.5 % (11.6-16.5); WHITE BLOOD COUNT 7.9 X10^3/uL (3.6-10.0)
[2020-12-15 11:49] LABS: ALANINE AMINOTRANSFERASE 43 Units/L (12-78); ALBUMIN 3.1 g/dL (3.4-5.0); ALKALINE PHOSPHATASE 55 Units/L (46-116); ASPARTATE AMINO TRANSFERASE 27 Units/L (15-37); BLOOD UREA NITROGEN 16 mg/dL (7-18); CALCIUM 8.2 mg/dL (8.5-10.1); CARBON DIOXIDE 31.9 mmol/L (21-32); CHLORIDE 102 mmol/L (98-107); COR CA(FOR HYPOALB) 8.9 mg/dL (8.5-10.1); COR NA(FOR HYPERGLY) 145 mmol/L (136-145); CREATININE 1.05 mg/dL (0.70-1.30); SODIUM 140 mmol/L (136-145); TOTAL PROTEIN 7.3 g/dL (6.4-8.2); eGFR NON BLACK RACES > 60 (>60)
[2020-12-15] MEDS ORDERED: NS 1/2 1000 ML IV 1,000 ML IV ONE (13:23)
[2020-12-15] MEDS ORDERED: KLOR-CON PO PRN (13:37)
[2020-12-15] MEDS ORDERED: K-RIDER 10 MEQ/NS 100 ML 10 MEQ/100 ML BAG IV PRN (13:37)
[2020-12-15] MEDS ORDERED: POTASSIUM CHLORIDE LIQ 20 MEQ UDC PO PRN (13:37)
[2020-12-15] MEDS ORDERED: MICRO K EXTEN CAP 10 MEQ PO PRN (13:37)
[2020-12-15] MEDS ORDERED: POTASSIUM CHL 40 MEQ/NS 0.45% 500 ML IV PRN (13:37)
[2020-12-15] MEDS ORDERED: POTASSIUM CHL 60 MEQ/NS 0.45% 500 ML IV PRN (13:37)
[2020-12-15] MEDS ORDERED: K-DUR TAB 20 MEQ PO PRN (13:37)
--- NOTE | 2020-12-15 13:56 | PCM.PROG ---
Progress Note Progress Note for Day of Date of Exam: 12/15/20 Subjective Subjective: Pt is a 45 year old male no past medical history admitted for COVID- 19 pneumonia with hypoxia. Today, pt is sitting in bedside chair eating lunch. He has been using incentive spirometer. He reports feeling more weak and fatigue compared to yesterday but no worsening of respiratory status. He is currently utilizing 4L nasal cannula supplemental oxygen. Labs/imaging: Wbc 7.9, Hgb 13.6, Plt 243, Na 140, K 3.3, Creatinine 1.05, Glucose 317, CRP 75>13, CXR concern for widened mediastinum, CTA chest was ordered that revealed: No evidence for acute pulmonary thromboembolic disease in the main pulmonary artery, right and left main pulmonary arteries, lobar branches and proximal most segmental branches. Evaluation more peripherally is not possible due to suboptimal bolus timing. 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 Scattered bilateral predominantly peripheral ground-glass infiltrates consistent with but not diagnostic of COVID lung involvement. Pt is on pneumonia protocol that includes includes: IVF NS@75ml/h, Remdesivir, Solumedrol 125mg q6h, scheduled Bronchodilators, Antibiotics: Fortaz, Levaquin, Diflucan, Ivermectin, immune supporting supplements, SSI, supplemental O2, I/S, Respiratory therapy consult, Pneumonia protocol. Continue to wean/titrate supplemental oxygen as tolerated. Continue to closely monitor and follow up labs/imaging. Time spent on clinical assessment, reviewing labs and imaging, decision making, and documentation greater than 45 minutes. Past Medical Family Social History Past Med/Fam/Surg Hx: No changes since H&P Allergies: Allergies No Known Drug Allergies Allergy (Verified 12/13/20 15:31) Review of Systems ROS: No change since H&P Vital Signs and I&O's Vital Signs: Temperature 97.5 F Pulse Rate [Left Radial] 84 Pulse Rate 89 Respiratory Rate 22 Blood Pressure [Left Arm] 120/70 Blood Pressure 124/69 O2 Sat by Pulse Oximetry 93 Intake and Output: Intake & Output 12/12/20 12/13/20 12/14/20 12/15/20 23:59 23:59 23:59 23:59 Intake Total 520 / 520 1486 / 1486 599 / 599 Output Total 2500 / 2500 Balance 520 / 520 -1014 / -1014 599 / 599 Physical Exam Oriented: Normal Eyes: Normal Ear: Normal Nose: Normal Throat: Normal Respiratory: Diminished and Rales Cardiovascular: Normal : Normal Auscultation: Bowel Sounds: Normal Tenderness: Normal Skin: Normal Musculoskeletal: Normal Psychiatric: Normal Mood Description: Calm and Appropriate Affect: Normal Speech Pattern: Clear and Appropriate Laboratory and Diagnostics Result Diagrams: 12/15/20 11:25 12/15/20 11:25 Labs: 12/13/20 17:12 Blood Blood Culture - Preliminary 12/13/20 17:07 Blood Blood Culture - Preliminary Laboratory WBC 7.9 X10^3/uL (3.6-10.0) 12/15/20 11:25 RBC 4.31 X10^6/uL (4.7-6.0) L 12/15/20 11:25 Hgb 13.6 g/dL (13.5-18.0) 12/15/20 11:25 Hct 39.8 % (42.0-54.0) L 12/15/20 11:25 MCV 92.4 fL (80.0-100.0) 12/15/20 11:25 MCH 31.5 pg (27.0-34.0) 12/15/20 11:25 MCHC 34.1 g/dL (33.0-35.0) 12/15/20 11:25 RDW 12.5 % (11.6-16.5) 12/15/20 11:25 Plt Count 243 X10^3/uL (150.0-450.0) 12/15/20 11:25 MPV 7.6 fL (7.4-11.0) 12/15/20 11:25 Neut % (Auto) 87.7 % (42.0-75.0) H 12/15/20 11:25 Lymph % (Auto) 6.2 % (21.0-51.0) L 12/15/20 11:25 [place] % (Auto) 6.1 % (0.0-13.0) 12/15/20 11:25 Eos % (Auto) 0.0 % (0.9-2.9) L 12/15/20 11:25 Baso % (Auto) 0 % (0.2-1.0) L 12/15/20 11:25 Neut # (Auto) 6.9 x10^3/uL (2.2-4.8) H 12/15/20 11:25 Lymph # (Auto) 0.5 X10^3/uL (1.3-2.9) L 12/15/20 11:25 [place] # (Auto) 0.5 x10^3/uL (0.3-0.8) 12/15/20 11:25 Eos # (Auto) 0.0 x10^3/uL (0.0-0.2) 12/15/20 11:25 Baso # (Auto) 0.0 X10^3/uL (0.0-0.1) 12/15/20 11:25 Absolute Nucleated RBC 0.0 /100WBC 12/15/20 11:25 D-Dimer 0.36 ug/ml (0.0-0.57) 12/13/20 17:07 Sample Site Lr 12/13/20 14:50 ABG pH 7.450 (7.35-7.45) 12/13/20 14:50 ABG pCO2 45.0 mmHg (35.0-45.0) 12/13/20 14:50 ABG pO2 53.0 mmHg (80.0-100.0) L 12/13/20 14:50 ABG HCO3 31.3 mmol/L (22-26) H* 12/13/20 14:50 ABG O2 Saturation 89.0 % (90-100) L 12/13/20 14:50 ABG Base Excess 6.4 mmol/L (-2.0-2.0) H 12/13/20 14:50 Harry Test Pos 12/13/20 14:50 A-a Gradient 147.0 mmHg 12/13/20 14:50 FiO2 36.0 12/13/20 14:50 Blood Gas Comments Pt [employer] 12/13/20 14:50 Sodium 140 mmol/L (136-145) 12/15/20 11:25 Corrected Sodium 145 mmol/L (136-145) 12/15/20 11:25 Potassium 3.3 mmol/L (3.5-5.1) L 12/15/20 11:25 Chloride 102 mmol/L (98-107) 12/15/20 11:25 Carbon Dioxide 31.9 mmol/L (21-32) 12/15/20 11:25 BUN 16 mg/dL (7-18) 12/15/20 11:25 Creatinine 1.05 mg/dL (0.70-1.30) 12/15/20 11:25 Est GFR (MDRD) Af Amer > 60 (>60) 12/15/20 11:25 Est GFR (MDRD) Non-Af > 60 (>60) 12/15/20 11:25 Glucose 317 mg/dL (65-99) H 12/15/20 11:25 Calcium 8.2 mg/dL (8.5-10.1) L 12/15/20 11:25 Corrected Calcium 8.9 mg/dL (8.5-10.1) 12/15/20 11:25 Ferritin 1408 ng/mL (26-388) H 12/13/20 14:40 Total Bilirubin 0.50 mg/dL (0.2-1.0) 12/15/20 11:25 AST 27 Units/L (15-37) 12/15/20 11:25 ALT 43 Units/L (12-78) 12/15/20 11:25 Alkaline Phosphatase 55 Units/L (46-116) 12/15/20 11:25 Creatine Kinase 172 Units/L (39-308) 12/13/20 14:40 CK-MB (CK-2) < 1.0 ng/mL (0-4.0) 12/13/20 14:40 CK/CKMB % Calc 0.6 % (<4) 12/13/20 14:40 Troponin I < 0.02 ng/mL (0-1.5) 12/13/20 14:40 C-Reactive Protein 13.40 mg/L (0-3.0) H 12/15/20 11:25 B-Natriuretic Peptide 19.1 pg/mL (0-79) 12/13/20 14:40 Total Protein 7.3 g/dL (6.4-8.2) 12/15/20 11:25 Albumin 3.1 g/dL (3.4-5.0) L 12/15/20 11:25 Globulin 4.2 g/dL (2.5-4.5) 12/15/20 11:25 Albumin/Globulin Ratio 0.7 Ratio (1.1-2.1) L 12/15/20 11:25 SARS-CoV-2 (PCR) Positive (NEGATIVE) A 12/13/20 15:31 Influenza Type A (PCR) Negative (NEGATIVE) 12/13/20 15:31 Influenza Type B (PCR) Negative (NEGATIVE) 12/13/20 15:31 RSV (PCR) Negative (NEGATIVE) 12/13/20 15:31 Plan (1) Pneumonia due to COVID-19 virus: Status: Acute Plan: -Pneumonia protocol
[2020-12-15] MEDS: PEPCID 20 MG IV PREMIX* 20 MG/50 ML BAG IV SCH (14:00)
[2020-12-15] MEDS: IVERMECTIN PO SCH (14:00)
[2020-12-15] MEDS: LEVAQUIN PREMIX IV 500 MG 500 MG/100 ML BAG IV SCH (14:00)
[2020-12-15] MEDS: REMDESIVIR 100 MG in NS 250 ML IV 250 ML IV SCH (14:00)
[2020-12-15] MEDS: MILK OF MAGNESIA PO SCH ×2 (18:41→22:15)
[2020-12-15] MEDS: SNACK - Diabetic Appropriate PO SCH (20:00)
[2020-12-15] MEDS ORDERED: NS 100 ML IV + SPIKE MINIBAG* 100 ML IV ONE (20:37)
[2020-12-15] MEDS: LIPITOR TAB 80 MG PO SCH (21:00)
[2020-12-15] MEDS: SINGULAIR TAB 10 MG PO SCH (21:00)
[2020-12-15] MEDS: MELATONIN PO SCH (21:00)
[2020-12-16] MEDS: ASCORBIC ACID INJ MULTI-DOSE VIAL 1,500 MG in NS 50 ML IV 50 ML IV SCH ×4 (03:32→21:00)
[2020-12-16] MEDS: SOLU-Medrol 125 MG VIAL IVP SCH ×4 (03:32→21:00)
[2020-12-16] MEDS: FORTAZ or TAZICEF VIAL INJ IV SCH ×3 (05:25→23:00)
[2020-12-16] MEDS: NS 100 ML IV + SPIKE MINIBAG* 100 ML IV PRN ×3 (05:25→23:00)
[2020-12-16] MEDS: TESSALON PERLES PO SCH ×3 (05:43→21:00)
[2020-12-16] MEDS: HumuLIN R SUBCUT PRN ×3 (05:58→21:00)
[2020-12-16 06:05] LABS: BASOPHILS % (AUTO) 0.2 % (0.2-1.0); HEMATOCRIT 38.2 % (42.0-54.0); HEMOGLOBIN 13.1 g/dL (13.5-18.0); LYMPHOCYTES # (AUTO) 0.5 X10^3/uL (1.3-2.9); LYMPHOCYTES % (AUTO) 5.8 % (21.0-51.0); MEAN CORPUSCULAR HEMOGLOBIN 31.5 pg (27.0-34.0); MEAN CORPUSCULAR HGB CONC 34.2 g/dL (33.0-35.0); MEAN CORPUSCULAR VOLUME 92.1 fL (80.0-100.0); MONOCYTES # (AUTO) 0.5 x10^3/uL (0.3-0.8); MONOCYTES % (AUTO) 5.3 % (0.0-13.0); NEUTROPHILS # (AUTO) 8.4 x10^3/uL (2.2-4.8); NEUTROPHILS % (AUTO) 88.7 % (42.0-75.0); PLATELET COUNT 276 X10^3/uL (150.0-450.0); RED BLOOD COUNT 4.14 X10^6/uL (4.7-6.0); RED CELL DISTRIBUTION WIDTH 12.7 % (11.6-16.5); WHITE BLOOD COUNT 9.4 X10^3/uL (3.6-10.0)
[2020-12-16 06:21] LABS: ALANINE AMINOTRANSFERASE 44 Units/L (12-78); ALBUMIN 2.9 g/dL (3.4-5.0); ALKALINE PHOSPHATASE 53 Units/L (46-116); ASPARTATE AMINO TRANSFERASE 29 Units/L (15-37); BLOOD UREA NITROGEN 20 mg/dL (7-18); CALCIUM 8.1 mg/dL (8.5-10.1); CARBON DIOXIDE 31.1 mmol/L (21-32); CHLORIDE 103 mmol/L (98-107); COR NA(FOR HYPERGLY) 147 mmol/L (136-145); SODIUM 141 mmol/L (136-145); TOTAL PROTEIN 6.9 g/dL (6.4-8.2); eGFR NON BLACK RACES > 60 (>60)
--- NOTE | 2020-12-16 07:23 | RAD ---
HISTORYFollow up pneumoniaSTUDYAP [id number]/2021, CTA chest 12/14/2020FINDINGSStable heart size with aortic dilatation as before. Mild diffuse interstitial infiltrates are present with little or no significant airspace involvement. The hilar structures are symmetric and the pleural spaces are clear.IMPRESSIONNo significant change. The described interstitial pulmonary prominence is nonspecific but compatible with atypical pneumonia pattern, as suggested on recent CTA imaging.Electronically signed by: MARITO PINEDA (Dec 16, 2020 07:21:34)
[2020-12-16] MEDS ORDERED: NS 1/2 1000 ML IV 1,000 ML IV ONE (08:22)
[2020-12-16] MEDS: NS 1/2 1000 ML IV 1,000 ML IV SCH ×3 (08:52→23:36)
[2020-12-16] MEDS: DIFLUCAN PO SCH (08:56)
[2020-12-16] MEDS: LOVENOX INJ 30 MG SYR SC SCH ×2 (08:57→21:00)
[2020-12-16] MEDS: IVERMECTIN PO SCH (08:57)
[2020-12-16] MEDS: LEVAQUIN PREMIX IV 500 MG 500 MG/100 ML BAG IV SCH (08:57)
[2020-12-16] MEDS: REMDESIVIR 100 MG in NS 250 ML IV 250 ML IV SCH (08:58)
[2020-12-16] MEDS: PEPCID 20 MG IV PREMIX* 20 MG/50 ML BAG IV SCH (08:58)
[2020-12-16] MEDS: PROTONIX INJ 40 MG VIAL IVP SCH (08:58)
[2020-12-16] MEDS: PULMICORT NEB TX 0.5 MG NEB SCH ×2 (08:59→21:30)
[2020-12-16] MEDS: MUCOMYST 20% 200 MG/ML NEB SCH ×4 (08:59→21:30)
[2020-12-16] MEDS: MILK OF MAGNESIA PO SCH ×2 (08:59→22:28)
[2020-12-16] MEDS: THEO-DUR TAB 300 MG 12-HR PO SCH ×2 (08:59→21:00)
[2020-12-16] MEDS: XOPENEX 1.25 MG/3 ML NEBULE NEB SCH ×4 (08:59→21:30)
[2020-12-16] MEDS: ZyrTEC TAB 10 MG PO SCH (09:15)
[2020-12-16] MEDS: VITAMIN D3 125 mcg (5,000 UNITS) PO SCH (09:15)
[2020-12-16] MEDS: ZINC SULFATE PO SCH (09:15)
[2020-12-16] MEDS: THIAMINE HCL INJ IVP SCH ×2 (09:15→21:00)
--- NOTE | 2020-12-16 09:24 | RAD ---
HISTORYFollow up pneumoniaSTUDYAP [id number]/03/2021FINDINGSThere is no definite change in appearance of heart or lungs. Heart size remains upper normal with widened mediastinum as before. Indistinct peripheral airspace infiltrates are noted bilaterally without evidence for lobar consolidation, pulmonary edema, pneumothorax or pleural fluid.IMPRESSIONNo change. Stable appearance of relatively mild peripheral pulmonary infiltrates consistent with atypical pneumonia.Electronically signed by: MARITO PINEDA (Dec 16, 2020 09:22:29)
[2020-12-16] MEDS: FLONASE NASAL SPRAY ENOSTRIL SCH (14:30)
[2020-12-16] MEDS: SNACK - Diabetic Appropriate PO SCH (20:00)
[2020-12-16] MEDS: LIPITOR TAB 80 MG PO SCH (21:00)
[2020-12-16] MEDS: MELATONIN PO SCH (21:00)
[2020-12-16] MEDS: SINGULAIR TAB 10 MG PO SCH (21:00)
--- NOTE | 2020-12-17 00:38 | PCM.PROG ---
Progress Note Progress Note for Day of Date of Exam: 12/16/20 Subjective Subjective: Pt is a 45 year old male no past medical history admitted for COVID- 19 pneumonia with hypoxia. Today, pt is resting comfortably in bed, reports some improvement in his breathing. He is currently utilizing 3L nasal cannula supplemental oxygen. Labs/imaging: Wbc 9.4, Hgb 13.1, Plt 276, Na 141, K 3.3, Creatinine 1.00, Glucose 362, CRP 13>7.0, A1C 7.7. CXR: No significant change. The described interstitial pulmonary prominence is nonspecific but compatible with atypical pneumonia pattern, as suggested on recent CTA imaging. Pt is on pneumonia protocol that includes: IVF NS@75ml/h, Remdesivir, Solumedrol 125mg q6h, scheduled Bronchodilators, Antibiotics: Fortaz, Levaquin, Diflucan, Iverme ctin, immune supporting supplements, SSI, supplemental O2, I/S, Respiratory therapy consult, Pneumonia protocol. Pt is newly diagnosed T2DM, will start on metformin. Decrease solumedrol to 80mg Q8h. Replete potassium per protocol. Continue to wean/titrate supplemental oxygen as tolerated. Continue to closely monitor and follow up labs/imaging. Time spent on clinical assessment, reviewing labs and imaging, decision making, and documentation greater than 45 minutes. Past Medical Family Social History Past Med/Fam/Surg Hx: No changes since H&P Allergies: Allergies No Known Drug Allergies Allergy (Verified 12/13/20 15:31) Review of Systems ROS: No change since H&P Vital Signs and I&O's Vital Signs: Temperature 97.9 F Pulse Rate [Left Radial] 88 Pulse Rate 89 Respiratory Rate 24 Blood Pressure [Left Arm] 147/66 Blood Pressure 124/69 O2 Sat by Pulse Oximetry 89 Intake and Output: Intake & Output 12/14/20 12/15/20 12/16/20 12/17/20 23:59 23:59 23:59 23:59 Intake Total 1486 / 1486 1539 / 1539 3140 / 3140 Output Total 2500 / 2500 Balance -1014 / -1014 1539 / 1539 3140 / 3140 Physical Exam Oriented: Normal Eyes: Normal Ear: Normal Nose: Normal Throat: Normal Respiratory: Diminished and Rales Cardiovascular: Normal : Normal Auscultation: Bowel Sounds: Normal Palpation: Normal Tenderness: Normal Skin: Normal Musculoskeletal: Normal Psychiatric: Normal Mood Description: Calm and Appropriate Affect: Normal Speech Pattern: Clear and Appropriate Laboratory and Diagnostics Result Diagrams: 12/16/20 05:18 12/16/20 18:35 Labs: 12/13/20 17:12 Blood Blood Culture - Preliminary 12/13/20 17:07 Blood Blood Culture - Preliminary Laboratory WBC 9.4 X10^3/uL (3.6-10.0) 12/16/20 05:18 RBC 4.14 X10^6/uL (4.7-6.0) L 12/16/20 05:18 Hgb 13.1 g/dL (13.5-18.0) L 12/16/20 05:18 Hct 38.2 % (42.0-54.0) L 12/16/20 05:18 MCV 92.1 fL (80.0-100.0) 12/16/20 05:18 MCH 31.5 pg (27.0-34.0) 12/16/20 05:18 MCHC 34.2 g/dL (33.0-35.0) 12/16/20 05:18 RDW 12.7 % (11.6-16.5) 12/16/20 05:18 Plt Count 276 X10^3/uL (150.0-450.0) 12/16/20 05:18 MPV 8.0 fL (7.4-11.0) 12/16/20 05:18 Neut % (Auto) 88.7 % (42.0-75.0) H 12/16/20 05:18 Lymph % (Auto) 5.8 % (21.0-51.0) L 12/16/20 05:18 [place] % (Auto) 5.3 % (0.0-13.0) 12/16/20 05:18 Eos % (Auto) 0.0 % (0.9-2.9) L 12/16/20 05:18 Baso % (Auto) 0.2 % (0.2-1.0) 12/16/20 05:18 Neut # (Auto) 8.4 x10^3/uL (2.2-4.8) H 12/16/20 05:18 Lymph # (Auto) 0.5 X10^3/uL (1.3-2.9) L 12/16/20 05:18 [place] # (Auto) 0.5 x10^3/uL (0.3-0.8) 12/16/20 05:18 Eos # (Auto) 0.0 x10^3/uL (0.0-0.2) 12/16/20 05:18 Baso # (Auto) 0.0 X10^3/uL (0.0-0.1) 12/16/20 05:18 Absolute Nucleated RBC 0.1 /100WBC 12/16/20 05:18 D-Dimer 0.36 ug/ml (0.0-0.57) 12/13/20 17:07 Sample Site Lr 12/13/20 14:50 ABG pH 7.450 (7.35-7.45) 12/13/20 14:50 ABG pCO2 45.0 mmHg (35.0-45.0) 12/13/20 14:50 ABG pO2 53.0 mmHg (80.0-100.0) L 12/13/20 14:50 ABG HCO3 31.3 mmol/L (22-26) H* 12/13/20 14:50 ABG O2 Saturation 89.0 % (90-100) L 12/13/20 14:50 ABG Base Excess 6.4 mmol/L (-2.0-2.0) H 12/13/20 14:50 Harry Test Pos 12/13/20 14:50 A-a Gradient 147.0 mmHg 12/13/20 14:50 FiO2 36.0 12/13/20 14:50 Blood Gas Comments Pt [employer] 12/13/20 14:50 Sodium 141 mmol/L (136-145) 12/16/20 05:18 Corrected Sodium 147 mmol/L (136-145) H 12/16/20 05:18 Potassium 3.6 mmol/L (3.5-5.1) 12/16/20 18:35 Chloride 103 mmol/L (98-107) 12/16/20 05:18 Carbon Dioxide 31.1 mmol/L (21-32) 12/16/20 05:18 BUN 20 mg/dL (7-18) H 12/16/20 05:18 Creatinine 1.00 mg/dL (0.70-1.30) 12/16/20 05:18 Est GFR (MDRD) Af Amer > 60 (>60) 12/16/20 05:18 Est GFR (MDRD) Non-Af > 60 (>60) 12/16/20 05:18 Glucose 419 mg/dL (65-99) H 12/16/20 17:02 Hemoglobin A1c 7.7 % 12/15/20 11:25 Calcium 8.1 mg/dL (8.5-10.1) L 12/16/20 05:18 Corrected Calcium 9.0 mg/dL (8.5-10.1) 12/16/20 05:18 Magnesium 2.5 mg/dL (1.7-2.9) 12/15/20 11:25 Ferritin 1408 ng/mL (26-388) H 12/13/20 14:40 Total Bilirubin 0.40 mg/dL (0.2-1.0) 12/16/20 05:18 AST 29 Units/L (15-37) 12/16/20 05:18 ALT 44 Units/L (12-78) 12/16/20 05:18 Alkaline Phosphatase 53 Units/L (46-116) 12/16/20 05:18 Creatine Kinase 172 Units/L (39-308) 12/13/20 14:40 CK-MB (CK-2) < 1.0 ng/mL (0-4.0) 12/13/20 14:40 CK/CKMB % Calc 0.6 % (<4) 12/13/20 14:40 Troponin I < 0.02 ng/mL (0-1.5) 12/13/20 14:40 C-Reactive Protein 7.00 mg/L (0-3.0) H 12/16/20 05:18 B-Natriuretic Peptide 19.1 pg/mL (0-79) 12/13/20 14:40 Total Protein 6.9 g/dL (6.4-8.2) 12/16/20 05:18 Albumin 2.9 g/dL (3.4-5.0) L 12/16/20 05:18 Globulin 4.0 g/dL (2.5-4.5) 12/16/20 05:18 Albumin/Globulin Ratio 0.7 Ratio (1.1-2.1) L 12/16/20 05:18 SARS-CoV-2 (PCR) Positive (NEGATIVE) A 12/13/20 15:31 Influenza Type A (PCR) Negative (NEGATIVE) 12/13/20 15:31 Influenza Type B (PCR) Negative (NEGATIVE) 12/13/20 15:31 RSV (PCR) Negative (NEGATIVE) 12/13/20 15:31 Plan (1) Pneumonia due to COVID-19 virus: Status: Acute Plan: -Pneumonia protocol (2) Type 2 diabetes mellitus: Status: Acute
[2020-12-17] MEDS: SOLU-Medrol 125 MG VIAL IVP SCH ×2 (02:30→09:08)
[2020-12-17] MEDS: ASCORBIC ACID INJ MULTI-DOSE VIAL 1,500 MG in NS 50 ML IV 50 ML IV SCH ×4 (02:50→20:17)
[2020-12-17] MEDS ORDERED: NS 1/2 1000 ML IV 1,000 ML IV ONE (05:44)
[2020-12-17] MEDS: NS 1/2 1000 ML IV 1,000 ML IV SCH (06:17)
[2020-12-17] MEDS: TESSALON PERLES PO SCH ×3 (06:17→21:27)
[2020-12-17] MEDS: FORTAZ or TAZICEF VIAL INJ IV SCH ×3 (06:17→21:27)
[2020-12-17] MEDS ORDERED: GLUCOPHAGE ONE ×2 (06:20→17:06)
[2020-12-17 06:21] LABS: BASOPHILS % (AUTO) 0.3 % (0.2-1.0); HEMATOCRIT 37.7 % (42.0-54.0); HEMOGLOBIN 13.1 g/dL (13.5-18.0); LYMPHOCYTES # (AUTO) 0.7 X10^3/uL (1.3-2.9); LYMPHOCYTES % (AUTO) 6.8 % (21.0-51.0); MEAN CORPUSCULAR HEMOGLOBIN 31.7 pg (27.0-34.0); MEAN CORPUSCULAR HGB CONC 34.6 g/dL (33.0-35.0); MEAN CORPUSCULAR VOLUME 91.5 fL (80.0-100.0); MEAN PLATELET VOLUME 8.1 fL (7.4-11.0); MONOCYTES # (AUTO) 0.7 x10^3/uL (0.3-0.8); MONOCYTES % (AUTO) 6.9 % (0.0-13.0); NEUTROPHILS # (AUTO) 8.7 x10^3/uL (2.2-4.8); PLATELET COUNT 289 X10^3/uL (150.0-450.0); RED BLOOD COUNT 4.12 X10^6/uL (4.7-6.0); RED CELL DISTRIBUTION WIDTH 12.5 % (11.6-16.5); WHITE BLOOD COUNT 10.1 X10^3/uL (3.6-10.0)
[2020-12-17] MEDS: GLUCOPHAGE PO SCH (06:22)
[2020-12-17] MEDS: HumuLIN R SUBCUT PRN ×3 (06:22→22:18)
[2020-12-17 06:55] LABS: ALANINE AMINOTRANSFERASE 42 Units/L (12-78); ALBUMIN 2.9 g/dL (3.4-5.0); ALKALINE PHOSPHATASE 52 Units/L (46-116); ASPARTATE AMINO TRANSFERASE 22 Units/L (15-37); BLOOD UREA NITROGEN 18 mg/dL (7-18); CARBON DIOXIDE 29.7 mmol/L (21-32); CHLORIDE 106 mmol/L (98-107); COR CA(FOR HYPOALB) 8.9 mg/dL (8.5-10.1); COR NA(FOR HYPERGLY) 147 mmol/L (136-145); MAGNESIUM 2.9 mg/dL (1.7-2.9); SODIUM 142 mmol/L (136-145); TOTAL PROTEIN 6.7 g/dL (6.4-8.2); eGFR NON BLACK RACES > 60 (>60)
[2020-12-17 07:15] LABS: BAND NEUTROPHILS % 1 % (0-10); METAMYELOCYTES % 3; MYELOCYTES % 1; PLATELET MORPHOLOGY COMMENT NORMAL (NORMAL)
--- NOTE | 2020-12-17 08:00 | RAD ---
HISTORYFollow up pneumoniaSTUDYPortable AP [id number]/2021FINDINGSThere is no change in appearance of the chest. Heart size is stable. Indistinct bilateral infiltrates are again noted especially in the periphery of the lungs. No new consolidation, pleural fluid accumulation or pneumothorax seen.IMPRESSIONNo change. Described findings are consistent with atypical pneumonia.Electronically signed by: MARITO PINEDA (Dec 17, 2020 07:58:19)
[2020-12-17] MEDS: XOPENEX 1.25 MG/3 ML NEBULE NEB SCH ×4 (08:43→20:48)
[2020-12-17] MEDS: MUCOMYST 20% 200 MG/ML NEB SCH ×4 (08:43→20:48)
[2020-12-17] MEDS: PULMICORT NEB TX 0.5 MG NEB SCH ×2 (08:43→20:48)
[2020-12-17] MEDS: IVERMECTIN PO SCH (09:06)
[2020-12-17] MEDS: THEO-DUR TAB 300 MG 12-HR PO SCH ×2 (09:07→20:16)
[2020-12-17] MEDS: ZINC SULFATE PO SCH (09:07)
[2020-12-17] MEDS: LOVENOX INJ 30 MG SYR SC SCH ×2 (09:07→20:27)
[2020-12-17] MEDS: DIFLUCAN PO SCH (09:08)
[2020-12-17] MEDS: PEPCID 20 MG IV PREMIX* 20 MG/50 ML BAG IV SCH (09:08)
[2020-12-17] MEDS: LEVAQUIN PREMIX IV 500 MG 500 MG/100 ML BAG IV SCH (09:08)
[2020-12-17] MEDS: THIAMINE HCL INJ IVP SCH ×2 (09:09→20:18)
[2020-12-17] MEDS: VITAMIN D3 125 mcg (5,000 UNITS) PO SCH (09:09)
[2020-12-17] MEDS: MILK OF MAGNESIA PO SCH ×2 (09:09→20:15)
[2020-12-17] MEDS: FLONASE NASAL SPRAY ENOSTRIL SCH (09:09)
[2020-12-17] MEDS: PROTONIX INJ 40 MG VIAL IVP SCH (09:09)
[2020-12-17] MEDS: ZyrTEC TAB 10 MG PO SCH (09:10)
[2020-12-17] MEDS: REMDESIVIR 100 MG in NS 250 ML IV 250 ML IV SCH (10:00)
[2020-12-17] MEDS ORDERED: HumuLIN R SUBCUT PRN (11:27)
[2020-12-17] MEDS ORDERED: SNACK - Diabetic Appropriate PO SCH (20:00)
[2020-12-17] MEDS: SINGULAIR TAB 10 MG PO SCH (20:15)
[2020-12-17] MEDS: LIPITOR TAB 80 MG PO SCH (20:16)
[2020-12-17] MEDS: MELATONIN PO SCH (20:16)
[2020-12-17] MEDS: SOLU-Medrol 40 MG VIAL IVP SCH (20:18)
[2020-12-17] MEDS: SNACK - Diabetic Appropriate PO SCH (20:30)
--- NOTE | 2020-12-17 22:37 | PCM.PROG ---
Progress Note Progress Note for Day of Date of Exam: 12/17/20 Subjective Subjective: Pt is a 45 year old male no past medical history admitted for COVID- 19 pneumonia with hypoxia and newly diagnose Type 2 Diabetes mellitus. Pt reports improvement in his breathing today. No acute events overnight. He is currently utilizing 3L nasal cannula supplemental oxygen. Labs/imaging: Wbc 10.1, Hgb 13.1, Plt 289, N 142, K 3.6, Creatinine 0.80, Glucose 313, CRP 3.2. CXR: No change. Described findings are consistent with atypical pneumonia. Pt is on pneumonia protocol that includes: IVF NS@75ml/h, Remdesivir, Solumedrol 80mg q8h, scheduled Bronchodilators, Antibiotics: Fortaz, Levaquin, Diflucan, Ivermectin, immune supporting supplements, SSI, supplemental O2, I/S, Respiratory therapy consult, Pneumonia protocol, Metformin 500mg BID. Will taper Solumedrol to 40mg BID. Continue to wean/titrate supplemental oxygen as tolerated. Continue to closely monitor and follow up labs/imaging. Time spent on clinical assessment, reviewing labs and imaging, decision making, and documentation greater than 45 minutes. Past Medical Family Social History Past Med/Fam/Surg Hx: No changes since H&P Allergies: Allergies No Known Drug Allergies Allergy (Verified 12/13/20 15:31) Review of Systems ROS: No change since H&P Vital Signs and I&O's Vital Signs: Temperature 98.7 F Pulse Rate [Left Radial] 93 Pulse Rate 86 Respiratory Rate 20 Blood Pressure [Left Arm] 123/80 Blood Pressure 124/69 O2 Sat by Pulse Oximetry 90 Intake and Output: Intake & Output 12/14/20 12/15/20 12/16/20 12/17/20 23:59 23:59 23:59 23:59 Intake Total 1486 / 1486 1539 / 1539 3140 / 3140 4185 / 4185 Output Total 2500 / 2500 Balance -1014 / -1014 1539 / 1539 3140 / 3140 4185 / 4185 Physical Exam Oriented: Normal Eyes: Normal Ear: Normal Nose: Normal Throat: Normal Respiratory: Diminished and Rales Cardiovascular: Normal : Normal Auscultation: Bowel Sounds: Normal Tenderness: Normal Skin: Normal Musculoskeletal: Normal Psychiatric: Normal Mood Description: Calm and Appropriate Affect: Normal Speech Pattern: Clear and Appropriate Laboratory and Diagnostics Result Diagrams: 12/17/20 05:45 12/17/20 05:45 Labs: 12/13/20 17:12 Blood Blood Culture - Preliminary 12/13/20 17:07 Blood Blood Culture - Preliminary Laboratory WBC 10.1 X10^3/uL (3.6-10.0) H 12/17/20 05:45 RBC 4.12 X10^6/uL (4.7-6.0) L 12/17/20 05:45 Hgb 13.1 g/dL (13.5-18.0) L 12/17/20 05:45 Hct 37.7 % (42.0-54.0) L 12/17/20 05:45 MCV 91.5 fL (80.0-100.0) 12/17/20 05:45 MCH 31.7 pg (27.0-34.0) 12/17/20 05:45 MCHC 34.6 g/dL (33.0-35.0) 12/17/20 05:45 RDW 12.5 % (11.6-16.5) 12/17/20 05:45 Plt Count 289 X10^3/uL (150.0-450.0) 12/17/20 05:45 Plt Count Comment Adequate (ADEQUATE) 12/17/20 05:45 MPV 8.1 fL (7.4-11.0) 12/17/20 05:45 Neut % (Auto) 86.0 % (42.0-75.0) H 12/17/20 05:45 Lymph % (Auto) 6.8 % (21.0-51.0) L 12/17/20 05:45 Andrew % (Auto) 6.9 % (0.0-13.0) 12/17/20 05:45 Eos % (Auto) 0.0 % (0.9-2.9) L 12/17/20 05:45 Baso % (Auto) 0.3 % (0.2-1.0) 12/17/20 05:45 Neut # (Auto) 8.7 x10^3/uL (2.2-4.8) H 12/17/20 05:45 Lymph # (Auto) 0.7 X10^3/uL (1.3-2.9) L 12/17/20 05:45 Andrew # (Auto) 0.7 x10^3/uL (0.3-0.8) 12/17/20 05:45 Eos # (Auto) 0.0 x10^3/uL (0.0-0.2) 12/17/20 05:45 Baso # (Auto) 0.0 X10^3/uL (0.0-0.1) 12/17/20 05:45 Absolute Nucleated RBC 0.1 /100WBC 12/17/20 05:45 Total Counted 100 12/17/20 05:45 Neutrophils % (Manual) 82 % (39-76) H 12/17/20 05:45 Band Neutrophils % 1 % (0-10) 12/17/20 05:45 Lymphocytes % (Manual) 11 % (13-43) L 12/17/20 05:45 Monocytes % (Manual) 2 % (4-9) L 12/17/20 05:45 Metamyelocytes % 3 12/17/20 05:45 Myelocytes % 1 12/17/20 05:45 Plt Morphology Comment Normal (NORMAL) 12/17/20 05:45 RBC Morphology Normal (NORMAL) 12/17/20 05:45 D-Dimer 0.36 ug/ml (0.0-0.57) 12/13/20 17:07 Sample Site Lr 12/13/20 14:50 ABG pH 7.450 (7.35-7.45) 12/13/20 14:50 ABG pCO2 45.0 mmHg (35.0-45.0) 12/13/20 14:50 ABG pO2 53.0 mmHg (80.0-100.0) L 12/13/20 14:50 ABG HCO3 31.3 mmol/L (22-26) H* 12/13/20 14:50 ABG O2 Saturation 89.0 % (90-100) L 12/13/20 14:50 ABG Base Excess 6.4 mmol/L (-2.0-2.0) H 12/13/20 14:50 Harry Test Pos 12/13/20 14:50 A-a Gradient 147.0 mmHg 12/13/20 14:50 FiO2 36.0 12/13/20 14:50 Blood Gas Comments Pt [facility] 12/13/20 14:50 Sodium 142 mmol/L (136-145) 12/17/20 05:45 Corrected Sodium 147 mmol/L (136-145) H 12/17/20 05:45 Potassium 3.6 mmol/L (3.5-5.1) 12/17/20 05:45 Chloride 106 mmol/L (98-107) 12/17/20 05:45 Carbon Dioxide 29.7 mmol/L (21-32) 12/17/20 05:45 BUN 18 mg/dL (7-18) 12/17/20 05:45 Creatinine 0.80 mg/dL (0.70-1.30) 12/17/20 05:45 Est GFR (MDRD) Af Amer > 60 (>60) 12/17/20 05:45 Est GFR (MDRD) Non-Af > 60 (>60) 12/17/20 05:45 Glucose 313 mg/dL (65-99) H 12/17/20 05:45 Hemoglobin A1c 7.7 % 12/15/20 11:25 Calcium 8.0 mg/dL (8.5-10.1) L 12/17/20 05:45 Corrected Calcium 8.9 mg/dL (8.5-10.1) 12/17/20 05:45 Magnesium 2.9 mg/dL (1.7-2.9) 12/17/20 05:45 Ferritin 1408 ng/mL (26-388) H 12/13/20 14:40 Total Bilirubin 0.50 mg/dL (0.2-1.0) 12/17/20 05:45 AST 22 Units/L (15-37) 12/17/20 05:45 ALT 42 Units/L (12-78) 12/17/20 05:45 Alkaline Phosphatase 52 Units/L (46-116) 12/17/20 05:45 Creatine Kinase 172 Units/L (39-308) 12/13/20 14:40 CK-MB (CK-2) < 1.0 ng/mL (0-4.0) 12/13/20 14:40 CK/CKMB % Calc 0.6 % (<4) 12/13/20 14:40 Troponin I < 0.02 ng/mL (0-1.5) 12/13/20 14:40 C-Reactive Protein 3.20 mg/L (0-3.0) H 12/17/20 05:45 B-Natriuretic Peptide 19.1 pg/mL (0-79) 12/13/20 14:40 Total Protein 6.7 g/dL (6.4-8.2) 12/17/20 05:45 Albumin 2.9 g/dL (3.4-5.0) L 12/17/20 05:45 Globulin 3.8 g/dL (2.5-4.5) 12/17/20 05:45 Albumin/Globulin Ratio 0.8 Ratio (1.1-2.1) L 12/17/20 05:45 SARS-CoV-2 (PCR) Positive (NEGATIVE) A 12/13/20 15:31 Influenza Type A (PCR) Negative (NEGATIVE) 12/13/20 15:31 Influenza Type B (PCR) Negative (NEGATIVE) 12/13/20 15:31 RSV (PCR) Negative (NEGATIVE) 12/13/20 15:31 Plan (1) Pneumonia due to COVID-19 virus: Status: Acute Plan: -Pneumonia protocol (2) Type 2 diabetes mellitus: Status: Acute
[2020-12-18] MEDS ORDERED: NS 1/2 1000 ML IV 1,000 ML IV ONE ×2 (02:47→20:58)
[2020-12-18] MEDS: NS 1/2 1000 ML IV 1,000 ML IV SCH ×3 (02:55→21:03)
[2020-12-18] MEDS: ASCORBIC ACID INJ MULTI-DOSE VIAL 1,500 MG in NS 50 ML IV 50 ML IV SCH ×4 (02:58→20:36)
[2020-12-18] MEDS ORDERED: GLUCOPHAGE ONE ×2 (04:02→17:26)
[2020-12-18] MEDS: TESSALON PERLES PO SCH ×3 (05:21→21:03)
[2020-12-18] MEDS: FORTAZ or TAZICEF VIAL INJ IV SCH ×3 (05:22→21:03)
[2020-12-18 05:50] LABS: ABG BASE EXCESS 7.2 mmol/L (-2.0-2.0)
[2020-12-18 05:51] LABS: ABG ALLEN TEST POS
[2020-12-18 06:20] LABS: BASOPHILS % (AUTO) 0.1 % (0.2-1.0); HEMATOCRIT 37.5 % (42.0-54.0); LYMPHOCYTES # (AUTO) 1.4 X10^3/uL (1.3-2.9); LYMPHOCYTES % (AUTO) 12.3 % (21.0-51.0); MEAN CORPUSCULAR HEMOGLOBIN 31.7 pg (27.0-34.0); MEAN CORPUSCULAR HGB CONC 34.6 g/dL (33.0-35.0); MEAN CORPUSCULAR VOLUME 91.5 fL (80.0-100.0); MEAN PLATELET VOLUME 8.1 fL (7.4-11.0); MONOCYTES # (AUTO) 0.7 x10^3/uL (0.3-0.8); MONOCYTES % (AUTO) 6.2 % (0.0-13.0); NEUTROPHILS # (AUTO) 9.1 x10^3/uL (2.2-4.8); NEUTROPHILS % (AUTO) 81.4 % (42.0-75.0); PLATELET COUNT 283 X10^3/uL (150.0-450.0); RED CELL DISTRIBUTION WIDTH 12.8 % (11.6-16.5); WHITE BLOOD COUNT 11.2 X10^3/uL (3.6-10.0)
[2020-12-18 06:50] LABS: ALANINE AMINOTRANSFERASE 45 Units/L (12-78); ALBUMIN 2.7 g/dL (3.4-5.0); ALKALINE PHOSPHATASE 52 Units/L (46-116); ASPARTATE AMINO TRANSFERASE 33 Units/L (15-37); BLOOD UREA NITROGEN 21 mg/dL (7-18); CALCIUM 7.8 mg/dL (8.5-10.1); CARBON DIOXIDE 30.3 mmol/L (21-32); CHLORIDE 106 mmol/L (98-107); COR CA(FOR HYPOALB) 8.8 mg/dL (8.5-10.1); COR NA(FOR HYPERGLY) 146 mmol/L (136-145); CREATININE 0.91 mg/dL (0.70-1.30); SODIUM 143 mmol/L (136-145); TOTAL PROTEIN 6.2 g/dL (6.4-8.2); eGFR NON BLACK RACES > 60 (>60)
[2020-12-18] MEDS: GLUCOPHAGE PO SCH ×3 (06:59→21:08)
[2020-12-18] MEDS: HumuLIN R SUBCUT PRN ×4 (07:00→21:04)
--- NOTE | 2020-12-18 07:44 | RAD ---
HISTORYPNEUMONIA FOLLOW UPSTUDYCHEST, 1 [id number] bilateral areas of opacity represents bronchopneumonia. Fi ndings are not changed significantly.No pleural effusion or pneumothorax.Probable cardiomegaly when a ccounting for magnification.Bones are unremarkable.EKG leads are noted.IMPRESSION1. Unchanged broncho pneumoniaElectronically signed by: Cedric Fagan (Dec 18, 2020 07:43:30)
[2020-12-18] MEDS: PULMICORT NEB TX 0.5 MG NEB SCH ×2 (08:51→20:10)
[2020-12-18] MEDS: XOPENEX 1.25 MG/3 ML NEBULE NEB SCH ×4 (08:51→20:10)
[2020-12-18] MEDS: MUCOMYST 20% 200 MG/ML NEB SCH ×5 (08:51→20:10)
[2020-12-18] MEDS: PEPCID 20 MG IV PREMIX* 20 MG/50 ML BAG IV SCH (09:40)
[2020-12-18] MEDS: THEO-DUR TAB 300 MG 12-HR PO SCH ×2 (09:45→20:37)
[2020-12-18] MEDS: IVERMECTIN PO SCH (09:45)
[2020-12-18] MEDS: THIAMINE HCL INJ IVP SCH ×2 (09:45→20:38)
[2020-12-18] MEDS: ZyrTEC TAB 10 MG PO SCH (09:45)
[2020-12-18] MEDS: PROTONIX INJ 40 MG VIAL IVP SCH (09:45)
[2020-12-18] MEDS: FLONASE NASAL SPRAY ENOSTRIL SCH (09:45)
[2020-12-18] MEDS: DIFLUCAN PO SCH (09:45)
[2020-12-18] MEDS: VITAMIN D3 125 mcg (5,000 UNITS) PO SCH (09:45)
[2020-12-18] MEDS: SOLU-Medrol 40 MG VIAL IVP SCH ×2 (09:50→20:38)
[2020-12-18] MEDS: LEVAQUIN PREMIX IV 500 MG 500 MG/100 ML BAG IV SCH (10:12)
[2020-12-18] MEDS: MILK OF MAGNESIA PO SCH ×3 (11:59→20:37)
[2020-12-18] MEDS: ZINC SULFATE PO SCH (11:59)
[2020-12-18] MEDS: LOVENOX INJ 30 MG SYR SC SCH ×2 (12:40→20:39)
[2020-12-18] MEDS ORDERED: NS 50 ML IV 50 ML IV ONE (14:14)
[2020-12-18] MEDS: SNACK - Diabetic Appropriate PO SCH (20:23)
[2020-12-18] MEDS: MELATONIN PO SCH (20:38)
[2020-12-18] MEDS: SINGULAIR TAB 10 MG PO SCH (20:38)
[2020-12-18] MEDS: LIPITOR TAB 80 MG PO SCH (20:39)
--- NOTE | 2020-12-18 21:02 | PCM.PROG ---
Progress Note - Progress Note for Day of Date of Exam: 12/18/20 - Subjective Subjective: MR. LOPES WAS ADMITTED ON 12/13 FOR TREATMENT OF COVID PNEUMONIA AND HYPOXIA. HE HAS A PMH OF DIABETES MELLITUS AND HTN. TODAY, HE IS ALERT AND ORIENTED, LYING IN BED ON MORNING ROUNDS. HE IS CURRENTLY UTILIZING OXYGEN VIA NASAL CANNULA AT 2 LITERS/MINUTE. HE CONTINUES WITH COMPLAINTS OF SHORTNESS OF BREATH AND WEAKNESS TODAY. HIS SATURATIONS HAVE BEEN 90-95% THROUGHOUT THE NIGHT AND THIS MORNING. ON EXAMINATION, HEART IS REGULAR IN RATE AND RHYTHM. BILATERAL LUNGS ARE NOTED WITH RALES THROUGHOUT. ABDOMEN IS ROUND, SOFT, AND NON-TENDER WITH NORMAL BOWEL SOUNDS NOTED IN ALL QUADRANTS. HIS VITALS THIS MORNING ARE: 98.3-78-20-97%-127/53. LABS WERE OBTAINED. ABNORMAL LAB VALUES INCLUDE THE FOLLOWING: WBC 11.2, RBC 4.10, HGB 13.0, HCT 37.5, POTASSIUM 3.1, BUN 21, GLUCOSE 238, CALCIUM 7.8, CRP 3.80, TOTAL PROTEIN 6.2, ALBUMIN 2.7. BLOOD CULTURES ARE PENDING. ABG REVEALED: PH 7.460, PC02 45, P02 65, HC03 32.0, 02 SAT 94, BASE EXCESS 7.2, A-A GRADIENT 135, FI02 36. A CHEST XRAY WAS OBTAINED AND REVEALED: 1. Unchanged bronchopneumonia. HE IS CURRENTLY RECEIVING NS AT 75 ML/HR, LEVAQUIN, FORTAZ, REMDESIVIR 100MG IV DAILY, DIFLUCAN, IVERMECTIN, IMMUNE SUPPORTING SUPPLEMENTS, SSI, SOLU-MEDROL, SCHEDULED BRONCHODILATORS, METFORMIN, RASHEED-DUR, PROTONIX, PEPCID, POTASSIUM PROTOCOL, RESPIRATORY THERAPY, SUPPLEMENTAL OXYGEN. WE WILL CONTINUE WITH CURRENT PLAN OF CARE TODAY AND ATTEMP T TO WEAN DOWN OXYGEN HE TOLERATES IT. OTHERWISE, WE WILL FOLLOW UP WITH AM LABS, CHEST XRAY, ABG, AND CONTINUE TO MONITOR. TIME SPENT ON CLINICAL ASSESSMENT, REVIEWING LABS AND IMAGING, DECISION MAKING, AND DOCUMENTATION GREATER THAN 45 MINUTES. - Past Medical Family Social History Past Med/Fam/Surg Hx: No changes since H&P Allergies: Allergies No Known Drug Allergies Allergy (Verified 12/13/20 15:31) - Review of Systems ROS: No change since H&P - Vital Signs and I&O's Vital Signs: Temperature 98.1 F Pulse Rate [Left Radial] 80 Pulse Rate 110 Respiratory Rate 25 Blood Pressure [Left Arm] 137/75 Blood Pressure 124/69 O2 Sat by Pulse Oximetry 92 Intake and Output: Intake & Output 12/16/20 12/17/20 12/18/20 12/19/20 11:59 11:59 11:59 11:59 Intake Total 3420 / 3420 3275 / 3275 4275 / 4275 1298 / 1298 Balance 3420 / 3420 3275 / 3275 4275 / 4275 1298 / 1298 - Physical Exam Oriented: Normal Eyes: Normal Ear: Normal Nose: Normal Throat: Normal Respiratory: Diminished, Rales Cardiovascular: Normal : Normal Auscultation: Bowel Sounds: Normal Palpation: Normal Tenderness: Normal Skin: Normal Musculoskeletal: Normal Psychiatric: Normal Mood Description: Calm, Appropriate Affect: Normal Speech Pattern: Clear, Appropriate - Laboratory and Diagnostics Result Diagrams: 12/18/20 05:26 12/18/20 20:25 Labs: 12/13/20 17:12 Blood Blood Culture - Preliminary 12/13/20 17:07 Blood Blood Culture - Preliminary Laboratory WBC 11.2 X10^3/uL (3.6-10.0) H 12/18/20 05:26 RBC 4.10 X10^6/uL (4.7-6.0) L 12/18/20 05:26 Hgb 13.0 g/dL (13.5-18.0) L 12/18/20 05:26 Hct 37.5 % (42.0-54.0) L 12/18/20 05:26 MCV 91.5 fL (80.0-100.0) 12/18/20 05:26 MCH 31.7 pg (27.0-34.0) 12/18/20 05:26 MCHC 34.6 g/dL (33.0-35.0) 12/18/20 05:26 RDW 12.8 % (11.6-16.5) 12/18/20 05:26 Plt Count 283 X10^3/uL (150.0-450.0) 12/18/20 05:26 Plt Count Comment Adequate (ADEQUATE) 12/17/20 05:45 MPV 8.1 fL (7.4-11.0) 12/18/20 05:26 Neut % (Auto) 81.4 % (42.0-75.0) H 12/18/20 05:26 Lymph % (Auto) 12.3 % (21.0-51.0) L 12/18/20 05:26 Roberts % (Auto) 6.2 % (0.0-13.0) 12/18/20 05:26 Eos % (Auto) 0.0 % (0.9-2.9) L 12/18/20 05:26 Baso % (Auto) 0.1 % (0.2-1.0) L 12/18/20 05:26 Neut # (Auto) 9.1 x10^3/uL (2.2-4.8) H 12/18/20 05:26 Lymph # (Auto) 1.4 X10^3/uL (1.3-2.9) 12/18/20 05:26 Roberts # (Auto) 0.7 x10^3/uL (0.3-0.8) 12/18/20 05:26 Eos # (Auto) 0.0 x10^3/uL (0.0-0.2) 12/18/20 05:26 Baso # (Auto) 0.0 X10^3/uL (0.0-0.1) 12/18/20 05:26 Absolute Nucleated RBC 0.5 /100WBC 12/18/20 05:26 Total Counted 100 12/17/20 05:45 Neutrophils % (Manual) 82 % (39-76) H 12/17/20 05:45 Band Neutrophils % 1 % (0-10) 12/17/20 05:45 Lymphocytes % (Manual) 11 % (13-43) L 12/17/20 05:45 Monocytes % (Manual) 2 % (4-9) L 12/17/20 05:45 Metamyelocytes % 3 12/17/20 05:45 Myelocytes % 1 12/17/20 05:45 Plt Morphology Comment Normal (NORMAL) 12/17/20 05:45 RBC Morphology Normal (NORMAL) 12/17/20 05:45 D-Dimer 0.36 ug/ml (0.0-0.57) 12/13/20 17:07 Sample Site Lrad 12/18/20 05:48 ABG pH 7.460 (7.35-7.45) H 12/18/20 05:48 ABG pCO2 45.0 mmHg (35.0-45.0) 12/18/20 05:48 ABG pO2 65.0 mmHg (80.0-100.0) L 12/18/20 05:48 ABG HCO3 32.0 mmol/L (22-26) H* 12/18/20 05:48 ABG O2 Saturation 94.0 % (90-100) 12/18/20 05:48 ABG Base Excess 7.2 mmol/L (-2.0-2.0) H 12/18/20 05:48 Harry Test Pos 12/18/20 05:48 A-a Gradient 135.0 mmHg 12/18/20 05:48 FiO2 36.0 12/18/20 05:48 Blood Gas Comments [facility] 12/18/20 05:48 Sodium 143 mmol/L (136-145) 12/18/20 05:26 Corrected Sodium 146 mmol/L (136-145) H 12/18/20 05:26 Potassium 3.8 mmol/L (3.5-5.1) 12/18/20 14:32 Chloride 106 mmol/L (98-107) 12/18/20 05:26 Carbon Dioxide 30.3 mmol/L (21-32) 12/18/20 05:26 BUN 21 mg/dL (7-18) H 12/18/20 05:26 Creatinine 0.91 mg/dL (0.70-1.30) 12/18/20 05:26 Est GFR (MDRD) Af Amer > 60 (>60) 12/18/20 05:26 Est GFR (MDRD) Non-Af > 60 (>60) 12/18/20 05:26 Glucose 319 mg/dL (65-99) H 12/18/20 20:25 POC Glucose (mg/dL) 233 mg/dL (65-99) H 12/18/20 05:29 Hemoglobin A1c 7.7 % 12/15/20 11:25 Calcium 7.8 mg/dL (8.5-10.1) L 12/18/20 05:26 Corrected Calcium 8.8 mg/dL (8.5-10.1) 12/18/20 05:26 Magnesium 2.9 mg/dL (1.7-2.9) 12/17/20 05:45 Ferritin 1408 ng/mL (26-388) H 12/13/20 14:40 Total Bilirubin 0.40 mg/dL (0.2-1.0) 12/18/20 05:26 AST 33 Units/L (15-37) 12/18/20 05:26 ALT 45 Units/L (12-78) 12/18/20 05:26 Alkaline Phosphatase 52 Units/L (46-116) 12/18/20 05:26 Creatine Kinase 172 Units/L (39-308) 12/13/20 14:40 CK-MB (CK-2) < 1.0 ng/mL (0-4.0) 12/13/20 14:40 CK/CKMB % Calc 0.6 % (<4) 12/13/20 14:40 Troponin I < 0.02 ng/mL (0-1.5) 12/13/20 14:40 C-Reactive Protein 3.80 mg/L (0-3.0) H 12/18/20 05:26 B-Natriuretic Peptide 19.1 pg/mL (0-79) 12/13/20 14:40 Total Protein 6.2 g/dL (6.4-8.2) L 12/18/20 05:26 Albumin 2.7 g/dL (3.4-5.0) L 12/18/20 05:26 Globulin 3.5 g/dL (2.5-4.5) 12/18/20 05:26 Albumin/Globulin Ratio 0.8 Ratio (1.1-2.1) L 12/18/20 05:26 SARS-CoV-2 (PCR) Positive (NEGATIVE) A 12/13/20 15:31 Influenza Type A (PCR) Negative (NEGATIVE) 12/13/20 15:31 Influenza Type B (PCR) Negative (NEGATIVE) 12/13/20 15:31 RSV (PCR) Negative (NEGATIVE) 12/13/20 15:31 - Plan (1) Pneumonia due to COVID-19 virus Status: Acute Plan: PNEUMONIA PROTOCOL, NS AT 75 ML/HR, LEVAQUIN, FORTAZ, REMDESIVIR 100MG IV DAILY, DIFLUCAN, IVERMECTIN, IMMUNE SUPPORTING SUPPLEMENTS, SSI, SOLU-MEDROL, SCHEDULED BRONCHODILATORS, METFORMIN, RASHEED-DUR, PROTONIX, PEPCID, POTASSIUM PROTOCOL, RESPIRATORY THERAPY, SUPPLEMENTAL OXYGEN (2) Hypoxia Status: Acute (3) Dyspnea Status: Acute Qualifiers: Dyspnea type: unspecified Qualified Code(s): R06.00 - Dyspnea, unspecified (4) Type 2 diabetes mellitus Status: Chronic Qualifiers: Diabetes mellitus intermediate manager insulin use: unspecified retirement insulin use status Diabetes mellitus complication status: with hyperglycemia Qualified Code(s): E11.65 - Type 2 diabetes mellitus with hyperglycemia
[2020-12-19] MEDS: NS 1/2 1000 ML IV 1,000 ML IV SCH ×2 (02:19→05:34)
[2020-12-19] MEDS: ASCORBIC ACID INJ MULTI-DOSE VIAL 1,500 MG in NS 50 ML IV 50 ML IV SCH ×3 (02:45→14:36)
[2020-12-19] MEDS ORDERED: GLUCOPHAGE ONE (05:14)
[2020-12-19] MEDS: FORTAZ or TAZICEF VIAL INJ IV SCH ×2 (05:31→14:35)
[2020-12-19] MEDS: TESSALON PERLES PO SCH ×2 (05:31→14:36)
[2020-12-19 05:41] LABS: ABG BASE EXCESS 5.3 mmol/L (-2.0-2.0)
[2020-12-19 05:42] LABS: ABG ALLEN TEST POS; ABG HCO3 30.5 mmol/L (22-26)
[2020-12-19] MEDS: GLUCOPHAGE PO SCH (06:13)
[2020-12-19 06:28] LABS: BASOPHILS % (AUTO) 0.2 % (0.2-1.0); EOSINOPHILS % (AUTO) 0.1 % (0.9-2.9); HEMATOCRIT 38.4 % (42.0-54.0); HEMOGLOBIN 13.3 g/dL (13.5-18.0); LYMPHOCYTES # (AUTO) 1.5 X10^3/uL (1.3-2.9); LYMPHOCYTES % (AUTO) 15.1 % (21.0-51.0); MEAN CORPUSCULAR HEMOGLOBIN 31.7 pg (27.0-34.0); MEAN CORPUSCULAR HGB CONC 34.7 g/dL (33.0-35.0); MEAN CORPUSCULAR VOLUME 91.4 fL (80.0-100.0); MEAN PLATELET VOLUME 8.1 fL (7.4-11.0); MONOCYTES # (AUTO) 0.5 x10^3/uL (0.3-0.8); MONOCYTES % (AUTO) 5.4 % (0.0-13.0); NEUTROPHILS # (AUTO) 7.6 x10^3/uL (2.2-4.8); NEUTROPHILS % (AUTO) 79.2 % (42.0-75.0); PLATELET COUNT 318 X10^3/uL (150.0-450.0); RED CELL DISTRIBUTION WIDTH 12.9 % (11.6-16.5); WHITE BLOOD COUNT 9.6 X10^3/uL (3.6-10.0)
[2020-12-19 06:50] LABS: ALANINE AMINOTRANSFERASE 49 Units/L (12-78); ALBUMIN 2.7 g/dL (3.4-5.0); ALKALINE PHOSPHATASE 47 Units/L (46-116); ASPARTATE AMINO TRANSFERASE 35 Units/L (15-37); BLOOD UREA NITROGEN 16 mg/dL (7-18); CALCIUM 7.4 mg/dL (8.5-10.1); CARBON DIOXIDE 29.8 mmol/L (21-32); CHLORIDE 106 mmol/L (98-107); COR CA(FOR HYPOALB) 8.4 mg/dL (8.5-10.1); COR NA(FOR HYPERGLY) 143 mmol/L (136-145); CREATININE 0.78 mg/dL (0.70-1.30); SODIUM 142 mmol/L (136-145); TOTAL PROTEIN 6.2 g/dL (6.4-8.2); eGFR NON BLACK RACES > 60 (>60)
[2020-12-19 07:08] LABS: BAND NEUTROPHILS % 2 % (0-10)
[2020-12-19 07:09] LABS: METAMYELOCYTES % 1; MYELOCYTES % 1; PLATELET MORPHOLOGY COMMENT NORMAL (NORMAL)
[2020-12-19] MEDS ORDERED: DIPRIVAN VIAL 20 ML ONE (07:27)
--- NOTE | 2020-12-19 07:48 | RAD ---
HISTORYSOBSTUDYCHEST, 1 [id number] cardiomediastinal silhouette is stable. Similar bilateral airspace opacities. The bony thorax appears intact.IMPRESSIONNo significant change.Electronically signed by: MARISOL LEE (Dec 19, 2020 07:46:36)
[2020-12-19] MEDS: PEPCID 20 MG IV PREMIX* 20 MG/50 ML BAG IV SCH (08:45)
[2020-12-19] MEDS: FLONASE NASAL SPRAY ENOSTRIL SCH (08:45)
[2020-12-19] MEDS: PROTONIX INJ 40 MG VIAL IVP SCH (08:45)
[2020-12-19] MEDS: DIFLUCAN PO SCH (08:45)
[2020-12-19] MEDS: MILK OF MAGNESIA PO SCH (08:46)
[2020-12-19] MEDS: THEO-DUR TAB 300 MG 12-HR PO SCH (08:46)
[2020-12-19] MEDS: LEVAQUIN PREMIX IV 500 MG 500 MG/100 ML BAG IV SCH ×2 (08:46→14:34)
[2020-12-19] MEDS: SOLU-Medrol 40 MG VIAL IVP SCH (08:46)
[2020-12-19] MEDS: ZINC SULFATE PO SCH (08:47)
[2020-12-19] MEDS: THIAMINE HCL INJ IVP SCH (08:47)
[2020-12-19] MEDS: VITAMIN D3 125 mcg (5,000 UNITS) PO SCH (08:47)
[2020-12-19] MEDS: ZyrTEC TAB 10 MG PO SCH (08:47)
[2020-12-19] MEDS ORDERED: LOVENOX INJ 40 MG SYR SC SCH (09:00)
[2020-12-19] MEDS: MUCOMYST 20% 200 MG/ML NEB SCH ×2 (09:25→13:50)
[2020-12-19] MEDS: PULMICORT NEB TX 0.5 MG NEB SCH (09:25)
[2020-12-19] MEDS: XOPENEX 1.25 MG/3 ML NEBULE NEB SCH ×2 (09:25→13:50)
[2020-12-19 13:06] VITALS: BP 142/87
[2020-12-19] MEDS: HumuLIN R SUBCUT PRN (13:07)
== END 2020-12-19 14:35 | disposition home or self-care (01) | DRG 177 ==
LOC: MERGE 13:37 → ER 13:37 → OBS 13:37 → OBSVTOIN 16:51 → OBS 17:43 → MED/SURG 12-14 16:34
PROVIDERS: ADMIT Internal Medicine; ATTEND Internal Medicine
DX: I10 Essential (primary) hypertension; R06.02 Shortness of breath; U07.1 COVID-19; R53.1 Weakness; J12.82 Pneumonia due to coronavirus disease 2019; R09.02 Hypoxemia; R26.89 Other abnormalities of gait and mobility; E11.65 Type 2 diabetes mellitus with hyperglycemia; R79.82 Elevated C-reactive protein (CRP); R79.89 Other specified abnormal findings of blood chemistry